=== PATIENT | female | born 1945 | race Asian ===

== ENCOUNTER 2020-08-28 15:04 | Inpatient (IN) | payer MEDICARE, MEDICAID, SELFPAY ==
--- NOTE | ~2020-08-28 | CT_ITS ---
EXAMINATION: CTA chest PE protocol DATE: 08/29/2020 14:37 INDICATION: Pleuritic right-sided chest pain. TECHNIQUE: Computed tomography angiography (CTA) of the chest was performed with 100 mL Omnipaque-350 intravenous contrast timed to evaluate the pulmonary arteries. Coronal maximum intensity projection 3D-reconstructions were created by the technologist. Automated exposure control and iterative reconst ruction technique were employed. The dose-length product was 363.76 mGy-cm. COMPARISON: Chest CT 08/14/2018 FINDINGS: Motion artifact is noted. There is diffuse smooth septal thickening in the lungs, consisten t with mild pulmonary edema. No pleural effusion. Cardiomegaly is noted. No pericardial effusion. Dario cified right hilar lymph nodes are consistent with old granulomatous disease. There is a left chest w all pacer with leads in the right atrium and right ventricle. There is no pulmonary embolus. The live r is small with nodular surface contour, consistent with cirrhosis. There are cysts in the liver geovanna uring up to 2.9 cm. There is a splenorenal shunt, consistent with portal venous hypertension. There i s an old healed fracture of right sixth rib. There are healing fractures of right 10th and 11th ribs. There are chronic burst fractures of T4, T7, T9, T12, L1, and L3. There is a burst fracture of L2 wi th 1/5 loss of height and retropulsion of bone 3 mm into central spinal canal. IMPRESSION: 1. No pulmonary embolus. Sensitivity is moderately decreased by motion artifact. 2. Mild pulmonary edema. 3. L2 burst fracture, likely subacute or chronic. 4. Healing right 10th and 11th rib fractures. 5. Cirrhosis of the liver with portal venous hypertension. Reviewed, dictated and finalized at location A. RVISOR CAB IMPRESSION: 1. No pulmonary embolus. Sensitivity is moderately decreased by motion artifact . 2. Mild pulmonary edema. 3. L2 burst fracture, likely subacute or chronic. 4. Healing right 10th and 11th rib fractures. 5. Cirrhosis of the liver with portal venous hypertension.
--- NOTE | ~2020-08-28 | CT_ITS ---
EXAMINATION: CT abdomen pelvis w con DATE: 08/28/2020 16:33 INDICATION: Abdominal pain. Vomiting. TECHNIQUE: Computed tomography (CT) of the abdomen and pelvis was performed with 98 mL Omnipaque 350 intravenous contrast. Automated exposure control and iterative reconstruction technique were employed . The dose-length product was 222.56 mGy-cm. COMPARISON: CT abdomen and pelvis 03/16/2018 FINDINGS: The visualized portions of the lung bases demonstrate smooth septal thickening, consistent with mild pulmonary edema. There is mild atelectasis bilaterally. There are trace pleural effusions. Cardiomegaly is noted. No pericardial effusion. There are pacer wires in right atrium and right ventr icle. The liver demonstrates surface nodularity, consistent with cirrhosis. There are multiple cysts in the liver measuring up to 3.1 cm. The gallbladder is normal. The spleen is normal in size. There i s a 10 mm cystic lesion in the body of the pancreas, likely benign. The adrenal glands and kidneys ar e normal. There is a splenorenal shunt. There are no dilated loops of bowel. Paraesophageal varices a re noted. There are no pathologically enlarged lymph nodes. There is trace ascites. There are old fra ctures of the right L1-L4 transverse processes with nonunion. There are chronic burst fractures of T9 , T12, L1, L3, and L4. There is a burst fracture of L2 with 1/5 loss of height and retropulsion of angie ne 3 mm into central spinal canal. IMPRESSION: 1. Cirrhosis of the liver with portal venous hypertension. 2. Mild pulmonary edema. 3. L2 burst fracture, likely subacute or chronic. Reviewed, dictated and finalized at location A. ESTATE SALES MANAGER
--- NOTE | ~2020-08-28 | XR_ITS ---
EXAMINATION: XR chest 1V portable DATE: 08/28/2020 15:57 INDICATION: Chest pain. TECHNIQUE: A single frontal view of the chest was obtained. COMPARISON: Chest 2 views 02/05/2019, chest CT 08/14/2018 FINDINGS: There is no pneumonia, pleural effusion, or pneumothorax. Cardiomegaly is noted. There is a left chest pacer/defibrillator with leads in right atrium and right ventricle. IMPRESSION: 1. Cardiomegaly. Reviewed, dictated and finalized at location A. IT SUPPORT COUNSELOR IMPRESSION: 1. Cardiomegaly.
[2020-08-28 15:15] VITALS: BP 140/62; PULSE 76; RESP 19; TEMP 36.6; O2SAT 94
--- NOTE | 2020-08-28 15:15 | ECG_ITS ---
Measurements Intervals [place] Rate: 74 P: 119 WI: 206 QRS: 28 QRSD: 90 T: 29 QT: 380 QTc: 423 Interpretive Statements ELECTRONIC ATRIAL PACEMAKER BASELINE WANDER- V5-V6 ATYPICAL ECG Electronically Signed On 08-28-2020 15:20:16 AUTOMATIC SILK SCREEN PRINTER by Francisco Javier Simmons D.O.
[2020-08-28 15:38] LABS: Basophils Percent Auto 0.6 % (0.2-1.2); Eosinophils Absolute Auto 0.2 K/mm3 (0-0.3); Eosinophils Percent Auto 7.1 % (0-4.4); Hematocrit 30.9 % (37.0-47.0); Hemoglobin 10.4 g/dL (12.0-15.0); Immature Granulocyte Absolute 0.01 K/mm3 (0.00-0.031); Immature Granulocyte Percent A 0.3 % (0-0.5); Immature Platelet Fraction Pct 1.9 % (0.9-11.2); Lymphocytes Absolute Auto 0.75 K/mm3 (0.9-3.2); Lymphocytes Percent Auto 22.3 % (18.3-44.2); Mean Corpuscular HGB Conc 33.7 g/dl (32-36); Mean Corpuscular Hemoglobin 34.1 pg (26-34); Mean Corpuscular Volume 101.3 fl (80-100); Mean Platelet Volume 11.1 fl (7.4-10.4); Monocytes Absolute Auto 0.5 K/mm3 (0.1-0.6); Monocytes Percent Auto 13.6 % (2.6-8.5); Neutrophils Absolute Auto 1.9 K/mm3 (1.3-6.7); Neutrophils Percent Auto 56.1 % (45.5-73.1); Platelet Count Result 54 k/mm3 (150-375); Red Blood Count 3.05 M/mm3 (4.2-5.4); Red Cell Distribution Width 14.8 % (11.5-14.5); White Blood Count 3.4 K/mm3 (4.5-10.0)
--- NOTE | 2020-08-28 15:45 | ED.GENADULT ---
HPI - General Adult General Chief complaint: Upper Respiratory Infection Stated complaint: BODYACHES, COUGH Time Seen by Provider: 08/28/20 15:20 Source: RN notes reviewed History of Present Illness HPI narrative: Patient presents to emergency department from home for multiple complaints. Patient speaks Mandarin and the patient's daughter is present to translate patient states she has not been feeling well for aggressively worse over the past 1 week. States she has been having low-grade fevers associated with a cough this been nonproductive states that over the past 4 days she has been having numerous episodes of nausea vomiting as well as diarrhea. Patient states she is having pain throughout her chest and into her abdomen described as a burning in nature she does have a history of cirrhosis and does take lactulose on a daily basis but is been intermittently throwing up her meds per the daughter no change in mental status Related Data Allergies Allergy/AdvReac Type Severity Reaction Status Date / Time No Known Allergies Allergy Verified 08/28/20 15:19 Review of Systems Review of Systems: Narrative: Gen.: Reports low-grade fevers Eyes: Denies eye pain or visual change ENT: Denies congestion Respiratory: Denies shortness of breath reports cough CV: Reports chest pain GI: See HPI Musculoskeletal: Denies back pain or muscle pain Neuro: Denies numbness, tingling, weakness or focal weakness Skin: Denies rash Except as documented, all other systems reviewed and negative [facility] Past Medical History Medical History (Updated 08/28/20 @ 18:41 by Chilo Olguin DO) Cirrhosis Hepatitis C Social History Social History (Updated 08/28/20 @ 18:40 by Chilo Olguin DO) Smoking status: Never smoker Exam Narrative: Exam Narrative: APPEARANCE: No acute distress, nontoxic, resting in bed EYES: EOMI HEENT: Normocephalic, atraumatic, OMM RESPIRATORY: No respiratory distress Clear to auscultation bilaterally with no rhonchi wheezing or rales. CARDIOVASCULAR: Regular rate and rhythm without murmurs rubs or gallops. ABDOMINAL: Soft, nondistended diffusely tender palpation no rebound or guarding MUSCULOSKELETAl: Moves all extremities. No clubbing, cyanosis or edema. NEURO: Awake and alert. Following commands, speech normal, no focal deficits SKIN:: Warm, dry. No rashes lesions or abrasions PSYCHIATRIC: Normal affect/mood, Course Course Emergency Course: Discussed with VONDA Samuel for Dr. Kemp presentation work-up agrees with plan for admission for gentle hydration monitor until patient is able to fully take p.o.'s well Covid swab at this time Discussed with patient and family results of workup and diagnosis. Discussed need for admission. Patient and family understand and agree to current treatment plan Vital Signs Vital signs: Vital Signs Temperature 97.9 F 08/28/20 15:15 Pulse Rate 76 08/28/20 15:15 Respiratory Rate 19 08/28/20 15:15 Blood Pressure 140/62 08/28/20 15:15 Pulse Oximetry 94 08/28/20 15:15 Temperature 97.9 F 08/28/20 15:15 Pulse Rate 80 08/28/20 18:37 Respiratory Rate 18 08/28/20 18:37 Blood Pressure 129/53 L 08/28/20 18:37 Pulse Oximetry 95 08/28/20 18:37 Medical Decision Making Vital Signs Vital Signs: Vital Signs Temperature 97.9 F 08/28/20 15:15 Pulse Rate 76 08/28/20 15:15 Respiratory Rate 19 08/28/20 15:15 Blood Pressure 140/62 08/28/20 15:15 Pulse Oximetry 94 08/28/20 15:15 Temperature 97.9 F 08/28/20 15:15 Pulse Rate 80 08/28/20 18:37 Respiratory Rate 18 08/28/20 18:37 Blood Pressure 129/53 L 08/28/20 18:37 Pulse Oximetry 95 08/28/20 18:37 Lab Data Result diagrams: 08/28/20 15:24 08/28/20 15:24 Labs: Lab Results 08/28/20 08/28/20 08/28/20 Range/Units 15:24 15:24 15:24 WBC 3.4 L (4.5-10.0) K/mm3 RBC 3.05 L (4.2-5.4) M/mm3 Hgb 10.4 L (12.0-15.0) g/dL Hct 30.9 L (
[2020-08-28 15:48] LABS: INR 1.3; Prothrombin Time 16.3 Seconds (11.1-14.7)
[2020-08-28 15:49] LABS: Partial Thromboplastin Time 40.6 SECONDS (22.3-36.8)
[2020-08-28 16:00] LABS: Anion Gap 3 mmol/L (8-16); Blood Urea Nitrogen 13 mg/dL (7-17); Calcium 8.4 mg/dL (8.4-10.2); Carbon Dioxide 32 mmol/L (22-30); Chloride 98 mmol/L (98-107); Estimated Glomerular Filt Rate > 60; Glucose 98 mg/dL (65-105); Sodium 133 mmol/L (137-145)
[2020-08-28 16:01] LABS: Alanine Aminotransferase 23 U/L (4-35); Albumin Level 3.1 g/dL (3.5-5.1); Alkaline Phosphatase 113 U/L (38-126); Aspartate Amino Transferase 66 U/L (14-36); Bilirubin,Total 2.3 mg/dL (0.2-1.3); Lipase 81 U/L (23-300)
[2020-08-28 16:10] LABS: Troponin I < 0.012 ng/mL (0.000-0.034)
[2020-08-28 16:55] VITALS: BP 129/57; PULSE 78; RESP 20; O2SAT 95
[2020-08-28 17:08] VITALS: O2SAT 96
[2020-08-28 17:38] LABS: Add Urine Microscopic? YES; Appearance Urine Clear (Clear); Bacteria Urine Trace /hpf; Bilirubin Urine Negative (Negative); Blood Urine 1+ (Negative); Color Urine Straw (Yellow); Glucose Urine UA Negative (Negative); Ketones Urine Negative (Negative); Leukocyte Esterase Ur Negative LEU/UL (Negative); Nitrate Urine Negative (Negative); Protein Urine Negative (Negative); RBC Urine 0-2 /hpf (0-2); Specific Grav Ur 1.015 (1.001-1.035); Squamous Epithelial Cell Urine Few /hpf (Few); Urobilinogen Urine Negative mg/dL (<2.0); WBC Urine 0-3 /hpf
[2020-08-28 17:54] LABS: Magnesium 1.6 mg/dL (1.6-2.3)
[2020-08-28 17:55] LABS: Lactic Acid Reflex 1.2 mmol/L (0.7-2.1)
[2020-08-28 18:35] LABS: Ammonia 26 umol/L (9-30)
[2020-08-28] MEDS: PANTOPRAZOLE SODIUM IV 40 MG VIAL IV PUSH (18:36)
[2020-08-28 18:37] VITALS: BP 129/53; PULSE 80; RESP 18; O2SAT 95
[2020-08-28 18:49] LABS: Troponin I 0.022 ng/mL (0.000-0.034)
--- NOTE | 2020-08-28 20:03 | ADMGEN ---
This patient, Stacie Mckenzie, was admitted to [facility] Surg Room 311-01. Patient/family oriented to hospital policies and general routines including ID bracelet, bed and alarms, visiting hours, pain management, procedures, bathroom and other care routines, personal items, smoking policy, room service/diet, and visiting hours. Information on how to activate the Rapid Response Team has been discussed. Patient/Family are encouraged to report perceived risks to care and to ask questions if they do not understand what they are told or what they should do.
[2020-08-28 20:10] VITALS: BP 144/52; PULSE 72; RESP 16; TEMP 36.6; O2SAT 93; BMI 19.9
[2020-08-28] MEDS: SODIUM CHLORIDE 0.9% IV 1,000 ML 100 ML IV CONT (20:12)
[2020-08-28 21:36] VITALS: BP 144/52; PULSE 72; RESP 16; TEMP 36.6; O2SAT 93; BMI 19.9
[2020-08-28 21:56] LABS: Troponin I 0.029 ng/mL (0.000-0.034)
[2020-08-29] VITALS: BP 116/41; PULSE 78; PULSE 85; RESP 18; TEMP 36.9; O2SAT 90
[2020-08-29 04:00] VITALS: BP 118/44; PULSE 73; PULSE 78; RESP 18; TEMP 36.9; O2SAT 90
[2020-08-29 06:10] LABS: Basophils Percent Auto 0.5 % (0.2-1.2); Eosinophils Absolute Auto 0.2 K/mm3 (0-0.3); Eosinophils Percent Auto 6.2 % (0-4.4); Hematocrit 29.4 % (37.0-47.0); Hemoglobin 9.9 g/dL (12.0-15.0); Immature Granulocyte Absolute 0.01 K/mm3 (0.00-0.031); Immature Granulocyte Percent A 0.3 % (0-0.5); Immature Platelet Fraction Pct 1.7 % (0.9-11.2); Lymphocytes Absolute Auto 0.85 K/mm3 (0.9-3.2); Mean Corpuscular HGB Conc 33.7 g/dl (32-36); Monocytes Absolute Auto 0.5 K/mm3 (0.1-0.6); Monocytes Percent Auto 13.3 % (2.6-8.5); Neutrophils Absolute Auto 2.1 K/mm3 (1.3-6.7); Neutrophils Percent Auto 56.7 % (45.5-73.1); Platelet Count Result 61 k/mm3 (150-375); Red Blood Count 2.91 M/mm3 (4.2-5.4); Red Cell Distribution Width 15.1 % (11.5-14.5); White Blood Count 3.7 K/mm3 (4.5-10.0)
[2020-08-29 06:20] LABS: Alanine Aminotransferase 17 U/L (4-35); Albumin Level 2.5 g/dL (3.5-5.1); Alkaline Phosphatase 75 U/L (38-126); Anion Gap 0 mmol/L (8-16); Aspartate Amino Transferase 44 U/L (14-36); Blood Urea Nitrogen 14 mg/dL (7-17); Calcium 8.1 mg/dL (8.4-10.2); Carbon Dioxide 30 mmol/L (22-30); Chloride 107 mmol/L (98-107); Estimated Glomerular Filt Rate > 60; Glucose 71 mg/dL (65-105); Sodium 137 mmol/L (137-145)
[2020-08-29] MEDS: SODIUM CHLORIDE 0.9% IV 1,000 ML 100 ML IV CONT (06:29)
[2020-08-29 08:00] VITALS: BP 137/51; PULSE 79; PULSE 80; RESP 20; TEMP 36.3; O2SAT 91
[2020-08-29] MEDS: FUROSEMIDE 20 MG TABLET PO (09:12)
[2020-08-29] MEDS: SPIRONOLACTONE 25 MG TABLET PO (09:13)
[2020-08-29] MEDS: POTASSIUM CHLORIDE 10 MEQ TABLET.ER PO (09:13)
[2020-08-29] MEDS: GABAPENTIN 100 MG CAPSULE PO ×3 (09:13→16:27)
[2020-08-29] MEDS: PANTOPRAZOLE SODIUM IV 40 MG VIAL IV PUSH ×2 (09:13→20:50)
--- NOTE | 2020-08-29 11:04 | PM.IMHP ---
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 Patient speaks Mandarin and daughter translates for patient as nursing reports her dialect is difficult to interpret using the designated science interpreter. Per the Daughter, patient started feeling ill sometime last week around 08/24. She states last week she developed subjective fevers and had nausea and vomiting. She also reported nonspecific chest pain, at first describing the pain from her chin to throughout her chest, however, currently, she points to her right side and reports chest pain with deep inspiration. She thought this started yesterday morning; no trauma to the site. She also reported vague abdominal pain and nausea and vomiting prior to arrival, however, this morning, she is now stating this has improved and was feeling hungry and asking for her meals. She also reports a chronic cough that waxes and wanes, that is usually productive, but as of recently her cough has been nonproductive. Daughter states patient lives with her other daughter and denies any sick contacts at home with similar symptoms or COVID contacts recently. She denies any black/tarry stools or blood in stools. Other than above complaints, she notes having lumber back pain as well. She has no other complaints at the moment. Denies current subjective f/c/s, palpitations, current n/v, current abd pain, changes in BMs, dysuria, hematuria, cloudy urine, calf pain/swelling. While in the ED, VS were stable, patient afebrile. Given respiratory symptoms and subjective fevers, patient swabbed for COVID. She was started on IV fluids given N/V and diarrhea. Ct abd/pelvis showed multiple chronic burst fractures with possible subacute vs chronic L2 burst fracture; cirrhosis of the liver with portal venous hypertension and mild pulmonary edema noted. Patient admitted given her n/v and possible dehydration Review of Systems Review of Systems: All systems reviewed & are unremarkable except as noted in HPI and below PMFSH Past Medical History Medical History Arthritis Asthma Cirrhosis Hepatitis C Hypertension Pacemaker TIA (transient ischemic attack) Surgical History Surgical History H/O cataract removal with insertion of prosthetic lens Family History Family History Other Unknown family medical history Social History Social History (Updated 08/29/20 @ 11:16 by Brayden Minor PA-C) Social History: Patient lives at home with her daughter. She is listed as a full code. Her PCP is Morgan Arauz NP. She sees liver specialist at [facility] Smoking status: Never smoker Alcohol intake: never Substance use: never Living arrangements: with family Occupation/Education: retired Gender identity (if verbalized by the patient): Female Spiritual care concerns: No Meds Home Medications and Allergies Home Medications Medication Instructions Recorded Confirmed Type furosemide 20 mg PO DAILY 08/28/20 08/28/20 History gabapentin 100 mg PO TID 08/28/20 08/28/20 History lactulose 30 ml PO BID PRN 08/28/20 08/28/20 History magnesium oxide 400 mg PO DAILY 08/28/20 08/28/20 History pantoprazole 40 mg PO DAILY 08/28/20 08/28/20 History potassium chloride 10 meq PO DAILY 08/28/20 08/28/20 History spironolactone 25 mg PO DAILY 08/28/20 08/28/20 History tadalafil (pulm. hypertension) 20 mg PO DAILY 08/28/20 08/28/20 History Allergies Allergy/AdvReac Type Severity Reaction Status Da
--- NOTE | 2020-08-29 11:15 | PC.NURSE ---
Patient speaks Mandarin. In past admissions, the [facility] has not worked for translation (unable to understand patient's dialect). Her daughter, Anshul, will assist with translation if needed. She can be contacted via telephone.
[2020-08-29 12:00] VITALS: BP 143/54; PULSE 70; PULSE 76; RESP 20; TEMP 36.2; O2SAT 95
[2020-08-29] MEDS: SUCRALFATE 1 GM TABLET PO ×3 (12:21→20:50)
[2020-08-29] MEDS: LACTULOSE 20 GM/30 ML UDC PO ×2 (12:21→16:27)
[2020-08-29] MEDS: traMADol HCL (*CRX) 25 MG TABLET PO ×2 (12:21→21:12)
[2020-08-29 16:00] VITALS: BP 156/67; PULSE 78; RESP 20; TEMP 36.6; O2SAT 94
[2020-08-29 18:13] LABS: SARS-CoV-2 RNA PCR Negative
[2020-08-29 22:00] VITALS: BP 142/68; PULSE 74; RESP 20; TEMP 36.8; O2SAT 94
[2020-08-30] MEDS: traMADol HCL (*CRX) 25 MG TABLET PO ×3 (02:28→20:55)
[2020-08-30 06:00] VITALS: BP 145/66; PULSE 70; RESP 20; TEMP 36.7; O2SAT 91
[2020-08-30] MEDS: SUCRALFATE 1 GM TABLET PO ×4 (06:22→20:56)
[2020-08-30 06:23] LABS: Basophils Percent Auto 0.5 % (0.2-1.2); Eosinophils Absolute Auto 0.3 K/mm3 (0-0.3); Eosinophils Percent Auto 8.3 % (0-4.4); Hematocrit 31.2 % (37.0-47.0); Hemoglobin 10.4 g/dL (12.0-15.0); Immature Granulocyte Absolute 0.01 K/mm3 (0.00-0.031); Immature Granulocyte Percent A 0.3 % (0-0.5); Lymphocytes Absolute Auto 0.86 K/mm3 (0.9-3.2); Lymphocytes Percent Auto 22.4 % (18.3-44.2); Mean Corpuscular HGB Conc 33.3 g/dl (32-36); Mean Platelet Volume 10.8 fl (7.4-10.4); Monocytes Absolute Auto 0.5 K/mm3 (0.1-0.6); Monocytes Percent Auto 12.5 % (2.6-8.5); Neutrophils Absolute Auto 2.2 K/mm3 (1.3-6.7); Platelet Count Result 60 k/mm3 (150-375); Red Blood Count 3.06 M/mm3 (4.2-5.4); Red Cell Distribution Width 15.4 % (11.5-14.5); White Blood Count 3.8 K/mm3 (4.5-10.0)
[2020-08-30 06:46] LABS: Alanine Aminotransferase 18 U/L (4-35); Albumin Level 2.6 g/dL (3.5-5.1); Alkaline Phosphatase 77 U/L (38-126); Anion Gap 1 mmol/L (8-16); Aspartate Amino Transferase 45 U/L (14-36); Bilirubin,Total 2.8 mg/dL (0.2-1.3); Blood Urea Nitrogen 14 mg/dL (7-17); Carbon Dioxide 28 mmol/L (22-30); Chloride 104 mmol/L (98-107); Estimated Glomerular Filt Rate > 60; Glucose 125 mg/dL (65-105); Magnesium 1.5 mg/dL (1.6-2.3); Potassium 3.7 mmol/L (3.4-5.0); Sodium 133 mmol/L (137-145)
[2020-08-30 07:22] LABS: Vitamin D 25 Hydroxy 15.2 ng/mL
[2020-08-30 08:19] LABS: Parathyroid Intact 27.4 pg/mL (7.5-53.5)
[2020-08-30 08:23] LABS: Folic Acid 10.9 ng/mL (2.76->20)
[2020-08-30 08:27] VITALS: BP 138/54; PULSE 72; RESP 18; TEMP 36.6; O2SAT 91
[2020-08-30] MEDS: GABAPENTIN 100 MG CAPSULE PO ×3 (08:31→16:13)
[2020-08-30] MEDS: POTASSIUM CHLORIDE 10 MEQ TABLET.ER PO (08:31)
[2020-08-30] MEDS: SPIRONOLACTONE 25 MG TABLET PO (08:31)
[2020-08-30] MEDS: FUROSEMIDE 20 MG TABLET PO (08:31)
[2020-08-30] MEDS: PANTOPRAZOLE SODIUM IV 40 MG VIAL IV PUSH (08:32)
[2020-08-30] MEDS: LACTULOSE 20 GM/30 ML UDC PO ×2 (08:32→16:12)
--- NOTE | 2020-08-30 10:49 | PC.NURSE ---
Spoke with Anshul (daughter) and gave a general update on her mother this morning. All questions answered stated by Anshul.
[2020-08-30 11:36] LABS: Total Triiodothyronine (T3) 0.73 NG/ML (0.97-1.69)
[2020-08-30] MEDS: MAGNESIUM SULF 1 GM/D5W 100 ML 1 GM/100 ML BAG IVPB (11:37)
--- NOTE | 2020-08-30 13:34 | PM.IMPN ---
Progress Note: A&P Assessment and Plan (1) Right rib fracture: Code(s): S22.31XA - Fracture of one rib, right side, initial encounter for closed fracture Status: Acute Assessment and Plan: CTA chest notes healing right 10th and 11th rib fractures and multiple chronic burst fractures of thoracic and lumbar spine with L2 burst fracture subacute vs chronic in nature. Daughter states she thinks she fell roughly 6 months ago, but does not know if there are more recent injuries; patient denied this on admission. Discussed with Radiologist who does not feel there are any lytic lesions or evidence of pathological fracture; appears osteoporotic in nature. Vit D level 15.2, calcium mildly low, PTH intact WNL, TSH WNL, protein electrophoresis pending. Discussed with PT/OT who recommended Ortho consult for possible eval for brace and activity recommendations PT/OT evals Orthopedic consultation; appreciate input Monitor Pain control as needed with Tramadol (2) Burst fracture of lumbar vertebra: Code(s): S32.001A - Stable burst fracture of unspecified lumbar vertebra, initial encounter for closed fracture Status: Inactive Assessment and Plan: Multiple fractures. Please see above a/p (3) Burst fracture of thoracic vertebra: Code(s): S22.001A - Stable burst fracture of unspecified thoracic vertebra, initial encounter for closed fracture Status: Acute Assessment and Plan: Multiple fractures. Please see above a/p (4) Vitamin D deficiency: Code(s): E55.9 - Vitamin D deficiency, unspecified Status: Acute Assessment and Plan: Vit D 25 hydroxy level 15.2 ng/mL, calcium mildly low, PTH intact WNL Will replace with 1000 units Vit d daily F/u with PCP (5) Nausea & vomiting: Code(s): R11.2 - Nausea with vomiting, unspecified Status: Resolved Assessment and Plan: Appears to have resolved. Unclear etiology; possible viral gastritis?. Willing to advance diet further today Continue carafate ACHS Switch to home PO pantoprazole Advance diet as tolerated to Low sodium diet Monitor overnight (6) Abdominal pain: Code(s): R10.9 - Unspecified abdominal pain Status: Resolved Assessment and Plan: This appears to have resolved. Again, unclear etiology as patient is a poor historian. Possibly gastritis? Please see above a/p advance diet as tolerated (7) Chest pain: Code(s): R07.9 - Chest pain, unspecified Status: Acute Assessment and Plan: Patient complaining of right pleuritic pain, however chest CTA reveals MSK injury; likely etiology behind pain. CTA chest 08/29 showed no evidence of PE; Healing right 10th and 11th rib fractures. Patient does not recall recent fall injury. Troponin levels negative x 3. Tramadol for pain as noted above Monitor (8) Pancytopenia: Code(s): D61.818 - Other pancytopenia Status: Acute Assessment and Plan: Appears chronic and stable upon review of labs. Likely related to cirrhosis Monitor for now Transfuse prn (9) Cirrhosis: Code(s): K74.60 - Unspecified cirrhosis of liver Status: Acute Assessment and Plan: With known esophageal varices. No evidence of upper GI bleed. Sees GI specialist at [facility] Continue home lactulose BID scheduled Will resume home PO pantoprazole Will continue carafate; likely continue at discharge (10) Asthma: Code(s): J45.909 - Unspecified asthma, uncomplicated Status: Inactive Assessment and Plan: Does not appear to be on any medications. Wheezing appears to have resolved Gautam
--- NOTE | 2020-08-30 13:48 | PCOTNOTE ---
Awaiting orthopedic evaluation/clarification due to multiple vertebral burst fractures. Will complete OT evaluation when appropriate.
[2020-08-30 14:00] VITALS: BP 104/49; PULSE 74; RESP 18; TEMP 36.4; O2SAT 97
[2020-08-30] MEDS: CHOLECALCIFEROL 1,000 UNITS TABLET 1000 UNITS PO (16:13)
[2020-08-30 22:00] VITALS: BP 139/53; PULSE 72; RESP 20; TEMP 37.4; O2SAT 95
[2020-08-31] VITALS: TEMP 36.9
[2020-08-31 06:00] VITALS: BP 127/50; PULSE 74; RESP 16; TEMP 36.8; O2SAT 92
[2020-08-31 06:28] LABS: Basophils Percent Auto 0.4 % (0.2-1.2); Eosinophils Absolute Auto 0.4 K/mm3 (0-0.3); Eosinophils Percent Auto 8.9 % (0-4.4); Hematocrit 31.2 % (37.0-47.0); Hemoglobin 10.5 g/dL (12.0-15.0); Immature Granulocyte Absolute 0.01 K/mm3 (0.00-0.031); Immature Granulocyte Percent A 0.2 % (0-0.5); Lymphocytes Absolute Auto 0.92 K/mm3 (0.9-3.2); Mean Corpuscular HGB Conc 33.7 g/dl (32-36); Mean Corpuscular Hemoglobin 33.5 pg (26-34); Mean Corpuscular Volume 99.7 fl (80-100); Mean Platelet Volume 9.6 fl (7.4-10.4); Monocytes Absolute Auto 0.5 K/mm3 (0.1-0.6); Monocytes Percent Auto 11.8 % (2.6-8.5); Neutrophils Absolute Auto 2.7 K/mm3 (1.3-6.7); Neutrophils Percent Auto 58.7 % (45.5-73.1); Platelet Count Result 64 k/mm3 (150-375); Red Blood Count 3.13 M/mm3 (4.2-5.4); Red Cell Distribution Width 15.1 % (11.5-14.5); White Blood Count 4.6 K/mm3 (4.5-10.0)
[2020-08-31 06:42] LABS: Alanine Aminotransferase 16 U/L (4-35); Albumin Level 2.4 g/dL (3.5-5.1); Alkaline Phosphatase 74 U/L (38-126); Anion Gap -4 mmol/L (8-16); Aspartate Amino Transferase 38 U/L (14-36); Bilirubin,Total 3.3 mg/dL (0.2-1.3); Blood Urea Nitrogen 13 mg/dL (7-17); Calcium 7.9 mg/dL (8.4-10.2); Carbon Dioxide 34 mmol/L (22-30); Chloride 102 mmol/L (98-107); Estimated Glomerular Filt Rate > 60; Glucose 84 mg/dL (65-105); Magnesium 1.4 mg/dL (1.6-2.3); Potassium 3.7 mmol/L (3.4-5.0); Sodium 132 mmol/L (137-145)
[2020-08-31] MEDS: SUCRALFATE 1 GM TABLET PO ×4 (07:11→20:28)
[2020-08-31 09:01] VITALS: BP 134/99; PULSE 81; RESP 18; TEMP 36.6; O2SAT 91
[2020-08-31] MEDS: MAGNESIUM SULF 2 GM/WATER 50ML 2 GM/50 ML BAG IVPB (09:04)
[2020-08-31] MEDS: PANTOPRAZOLE 40 MG TABLET PO (09:04)
[2020-08-31] MEDS: CHOLECALCIFEROL 1,000 UNITS TABLET 1000 UNITS PO (09:05)
[2020-08-31] MEDS: POTASSIUM CHLORIDE 10 MEQ TABLET.ER PO (09:05)
[2020-08-31] MEDS: SPIRONOLACTONE 25 MG TABLET PO (09:05)
[2020-08-31] MEDS: FUROSEMIDE 20 MG TABLET PO (09:05)
[2020-08-31] MEDS: GABAPENTIN 100 MG CAPSULE PO ×3 (09:06→17:10)
[2020-08-31] MEDS: traMADol HCL (*CRX) 25 MG TABLET PO ×2 (09:06→11:29)
[2020-08-31] MEDS: LACTULOSE 20 GM/30 ML UDC PO ×2 (09:06→17:09)
[2020-08-31 10:18] VITALS: BMI 11.0
[2020-08-31 10:20] VITALS: BMI 11.0
[2020-08-31 14:00] VITALS: BP 121/43; PULSE 69; RESP 16; TEMP 36.8; O2SAT 92
--- NOTE | 2020-08-31 14:33 | PM.IMPN ---
Progress Note: A&P Assessment and Plan (1) Right rib fracture: Code(s): S22.31XA - Fracture of one rib, right side, initial encounter for closed fracture Status: Acute Assessment and Plan: CTA chest notes healing right 10th and 11th rib fractures and multiple chronic burst fractures of thoracic and lumbar spine with L2 burst fracture subacute vs chronic in nature. Daughter states she thinks she fell roughly 6 months ago, but does not know if there are more recent injuries; patient denied this on admission. Discussed with Radiologist who does not feel there are any lytic lesions or evidence of pathological fracture; appears osteoporotic in nature. Vit D level 15.2, calcium mildly low, PTH intact WNL, TSH WNL, protein electrophoresis pending. Discussed case with Dr. Jimenez who recommended MR of lumbar and thoracic spine for further eval of burst fractures; if chronic appearing, then recommended no brace/corset to limit deconditioning of paraspinous muscles; if acute, then recommended throacolumbar corset for a short period. Also recommended spinal specialist outpatient referral PT/OT Monitor Pain control as needed with Tramadol; will increase to 50 mg Q6h prn Recommended outpatient follow up with PCP and possible pain specialist, as well as insurance marketing specialist Will do MR thoracic/lumbar spine wo contrast (2) Burst fracture of lumbar vertebra: Code(s): S32.001A - Stable burst fracture of unspecified lumbar vertebra, initial encounter for closed fracture Status: Inactive Assessment and Plan: Multiple fractures. Please see above a/p (3) Burst fracture of thoracic vertebra: Code(s): S22.001A - Stable burst fracture of unspecified thoracic vertebra, initial encounter for closed fracture Status: Acute Assessment and Plan: Multiple fractures. Please see above a/p (4) Vitamin D deficiency: Code(s): E55.9 - Vitamin D deficiency, unspecified Status: Acute Assessment and Plan: Vit D 25 hydroxy level 15.2 ng/mL, calcium mildly low, PTH intact WNL Will replace with 1000 units Vit d daily F/u with PCP (5) Nausea & vomiting: Code(s): R11.2 - Nausea with vomiting, unspecified Status: Resolved Assessment and Plan: Appears to have resolved. Unclear etiology; possible viral gastritis?. Tolerating PO Continue carafate ACHS Continue home PO pantoprazole Monitor overnight (6) Abdominal pain: Code(s): R10.9 - Unspecified abdominal pain Status: Resolved Assessment and Plan: This appears to have resolved. Again, unclear etiology as patient is a poor historian. Possibly gastritis? Please see above a/p Continue current diet (7) Chest pain: Code(s): R07.9 - Chest pain, unspecified Status: Acute Assessment and Plan: Patient complaining of right pleuritic pain, however chest CTA reveals MSK injury; likely etiology behind pain. CTA chest 08/29 showed no evidence of PE; Healing right 10th and 11th rib fractures. Patient does not recall recent fall injury. Troponin levels negative x 3. Tramadol for pain as noted above Monitor (8) Pancytopenia: Code(s): D61.818 - Other pancytopenia Status: Acute Assessment and Plan: Appears chronic and stable upon review of labs. Likely related to cirrhosis Monitor for now Transfuse prn (9) Cirrhosis: Code(s): K74.60 - Unspecified cirrhosis of liver Status: Acute Assessment and Plan: With known esophageal varices. No evidence of upper GI bleed. Sees GI specialist at [facility] Continue home lactulose BID scheduled Will continue home PO pantoprazole Will con
[2020-08-31 22:00] VITALS: BP 127/48; PULSE 67; RESP 20; TEMP 37; O2SAT 93
[2020-09-01] MEDS: traMADol HCL (*CRX) 50 MG TABLET PO (02:33)
[2020-09-01] MEDS: SUCRALFATE 1 GM TABLET PO ×4 (05:34→20:21)
[2020-09-01 06:00] VITALS: BP 129/46; PULSE 83; RESP 20; TEMP 36.7; O2SAT 97
[2020-09-01 06:21] LABS: Basophils Percent Auto 0.4 % (0.2-1.2); Eosinophils Absolute Auto 0.6 K/mm3 (0-0.3); Eosinophils Percent Auto 11.1 % (0-4.4); Hematocrit 30.8 % (37.0-47.0); Hemoglobin 10.4 g/dL (12.0-15.0); Immature Granulocyte Absolute 0.01 K/mm3 (0.00-0.031); Immature Granulocyte Percent A 0.2 % (0-0.5); Lymphocytes Absolute Auto 1.05 K/mm3 (0.9-3.2); Lymphocytes Percent Auto 18.8 % (18.3-44.2); Mean Corpuscular HGB Conc 33.8 g/dl (32-36); Mean Corpuscular Hemoglobin 33.2 pg (26-34); Mean Corpuscular Volume 98.4 fl (80-100); Mean Platelet Volume 8.7 fl (7.4-10.4); Monocytes Absolute Auto 0.7 K/mm3 (0.1-0.6); Monocytes Percent Auto 13.1 % (2.6-8.5); Neutrophils Absolute Auto 3.2 K/mm3 (1.3-6.7); Neutrophils Percent Auto 56.4 % (45.5-73.1); Platelet Count Result 55 k/mm3 (150-375); Red Blood Count 3.13 M/mm3 (4.2-5.4); Red Cell Distribution Width 14.9 % (11.5-14.5); White Blood Count 5.6 K/mm3 (4.5-10.0)
[2020-09-01 06:41] LABS: Alanine Aminotransferase 15 U/L (4-35); Albumin Level 2.4 g/dL (3.5-5.1); Alkaline Phosphatase 66 U/L (38-126); Anion Gap -4 mmol/L (8-16); Aspartate Amino Transferase 37 U/L (14-36); Bilirubin,Total 3.1 mg/dL (0.2-1.3); Blood Urea Nitrogen 17 mg/dL (7-17); Calcium 7.5 mg/dL (8.4-10.2); Carbon Dioxide 32 mmol/L (22-30); Chloride 99 mmol/L (98-107); Estimated Glomerular Filt Rate > 60; Glucose 182 mg/dL (65-105); Magnesium 1.6 mg/dL (1.6-2.3); Potassium 3.7 mmol/L (3.4-5.0); Sodium 127 mmol/L (137-145)
[2020-09-01 08:00] VITALS: PULSE 83; RESP 20; O2SAT 97
[2020-09-01] MEDS: FUROSEMIDE 20 MG TABLET PO (10:27)
[2020-09-01] MEDS: PANTOPRAZOLE 40 MG TABLET PO (10:27)
[2020-09-01] MEDS: POTASSIUM CHLORIDE 10 MEQ TABLET.ER PO (10:28)
[2020-09-01] MEDS: LACTULOSE 20 GM/30 ML UDC PO ×2 (10:28→17:16)
[2020-09-01] MEDS: CHOLECALCIFEROL 1,000 UNITS TABLET 1000 UNITS PO (10:28)
[2020-09-01] MEDS: SPIRONOLACTONE 25 MG TABLET PO (10:28)
[2020-09-01] MEDS: GABAPENTIN 100 MG CAPSULE PO ×3 (10:28→17:16)
[2020-09-01 14:00] VITALS: BP 119/50; PULSE 67; RESP 20; TEMP 36.6; O2SAT 94
--- NOTE | 2020-09-01 14:27 | PM.IMPN ---
Progress Note: A&P Assessment and Plan (1) Right rib fracture: Code(s): S22.31XA - Fracture of one rib, right side, initial encounter for closed fracture Status: Acute Assessment and Plan: CTA chest notes healing right 10th and 11th rib fractures and multiple chronic burst fractures of thoracic and lumbar spine with L2 burst fracture subacute vs chronic in nature. Daughter states she thinks she fell roughly 6 months ago, but does not know if there are more recent injuries; patient denied this on admission. Discussed with Radiologist who does not feel there are any lytic lesions or evidence of pathological fracture; appears osteoporotic in nature. Vit D level 15.2, calcium mildly low, PTH intact WNL, TSH WNL, protein electrophoresis pending. Discussed case with Dr. Jimenez who recommended MR of lumbar and thoracic spine for further eval of burst fractures however patient unable to get MRI at this facility due to her pacemaker. Discussed results of ct imaging again and it was felt that L2 burst fracture was more chornic appearing. Given the chronic appearing fractures, Dr. Jimenez recommended no brace or corset. He also recommended spinal specialist outpatient referral. Pain is still not controlled as she is unable to get out of bed due to pain. Choices of pain medication are limited due to her cirrhosis Will initiate oxycodone IR 2.5mg Q12 hr due to her cirrhosis; tramadol 50 mg Q6hr for breakthrough pain Should her pain improves overnight and she is able to move more tomorrow, will plan on discharge PT/OT Monitor overnight Recommended outpatient follow up with PCP and possible pain specialist, as well as quality control specialist (2) Burst fracture of lumbar vertebra: Code(s): S32.001A - Stable burst fracture of unspecified lumbar vertebra, initial encounter for closed fracture Status: Inactive Assessment and Plan: Multiple fractures. Please see above a/p (3) Burst fracture of thoracic vertebra: Code(s): S22.001A - Stable burst fracture of unspecified thoracic vertebra, initial encounter for closed fracture Status: Acute Assessment and Plan: Multiple fractures. Please see above a/p (4) Vitamin D deficiency: Code(s): E55.9 - Vitamin D deficiency, unspecified Status: Acute Assessment and Plan: Vit D 25 hydroxy level 15.2 ng/mL, calcium mildly low, PTH intact WNL Will replace with 1000 units Vit d daily F/u with PCP (5) Nausea & vomiting: Code(s): R11.2 - Nausea with vomiting, unspecified Status: Resolved Assessment and Plan: Appears to have resolved. Unclear etiology; possible viral gastritis? Tolerating PO Continue carafate ACHS Continue home PO pantoprazole Monitor overnight (6) Abdominal pain: Code(s): R10.9 - Unspecified abdominal pain Status: Resolved Assessment and Plan: This appears to have resolved. Again, unclear etiology as patient is a poor historian. Possibly gastritis? Please see above a/p Continue current diet (7) Chest pain: Code(s): R07.9 - Chest pain, unspecified Status: Acute Assessment and Plan: Patient complained of right pleuritic pain, however chest CTA reveals MSK injury; likely etiology behind pain. CTA chest 08/29 showed no evidence of PE; Healing right 10th and 11th rib fractures. Radiologist feels these are not lytic/pathologic lesions. Patient does not recall recent fall injury. Troponin levels negative x 3. Tramadol and oxycodone for pain as noted above Monitor (8) Pancytopenia: Code(s): D61.818 - Other pancytopenia Status: Acute Assessment and Plan: Appears chronic and stable/improved upon revie
[2020-09-01] MEDS: oxyCODONE HCL (*CRX) 2.5 MG TAB IR PO (20:22)
[2020-09-01 22:00] VITALS: BP 117/43; PULSE 72; RESP 20; TEMP 36.6; O2SAT 92
[2020-09-02 06:00] VITALS: BP 129/45; PULSE 75; RESP 22; TEMP 36.7; O2SAT 90
[2020-09-02] MEDS: SUCRALFATE 1 GM TABLET PO ×2 (06:00→12:39)
[2020-09-02 06:13] LABS: Hematocrit 32.3 % (37.0-47.0); Hemoglobin 11.1 g/dL (12.0-15.0); Mean Corpuscular HGB Conc 34.4 g/dl (32-36); Mean Corpuscular Hemoglobin 33.9 pg (26-34); Mean Corpuscular Volume 98.8 fl (80-100); Mean Platelet Volume 10.6 fl (7.4-10.4); Platelet Count Result 81 k/mm3 (150-375); Red Blood Count 3.27 M/mm3 (4.2-5.4); Red Cell Distribution Width 15.2 % (11.5-14.5); White Blood Count 5.6 K/mm3 (4.5-10.0)
[2020-09-02 06:30] LABS: Anion Gap -3 mmol/L (8-16); Blood Urea Nitrogen 18 mg/dL (7-17); Calcium 7.8 mg/dL (8.4-10.2); Carbon Dioxide 33 mmol/L (22-30); Chloride 97 mmol/L (98-107); Estimated Glomerular Filt Rate > 60; Glucose 112 mg/dL (65-105); Magnesium 1.5 mg/dL (1.6-2.3); Potassium 4.1 mmol/L (3.4-5.0); Sodium 127 mmol/L (137-145)
[2020-09-02 08:00] VITALS: PULSE 75; RESP 22; O2SAT 90
[2020-09-02] MEDS: MAGNESIUM SULF 1 GM/D5W 100 ML 1 GM/100 ML BAG IVPB (08:48)
[2020-09-02] MEDS: oxyCODONE HCL (*CRX) 2.5 MG TAB IR PO (08:49)
[2020-09-02] MEDS: POTASSIUM CHLORIDE 10 MEQ TABLET.ER PO (08:49)
[2020-09-02] MEDS: LACTULOSE 20 GM/30 ML UDC PO (08:49)
[2020-09-02] MEDS: CHOLECALCIFEROL 1,000 UNITS TABLET 1000 UNITS PO (08:49)
[2020-09-02] MEDS: SPIRONOLACTONE 25 MG TABLET PO (08:50)
[2020-09-02] MEDS: PANTOPRAZOLE 40 MG TABLET PO (08:50)
[2020-09-02] MEDS: GABAPENTIN 100 MG CAPSULE PO ×2 (08:50→12:38)
[2020-09-02] MEDS: FUROSEMIDE 20 MG TABLET PO (08:50)
--- NOTE | 2020-09-02 11:11 | PCOTNOTE ---
Practitioner attempted to have patient complete therapy session this date, but patient refused. Will attempt therapy at a later date.
[2020-09-02] MEDS: traMADol HCL (*CRX) 50 MG TABLET PO (12:41)
[2020-09-02 14:00] VITALS: BP 116/56; PULSE 77; RESP 18; TEMP 36.3; O2SAT 93
--- NOTE | 2020-09-02 14:14 | PM.DS ---
DS: Admitting Diagnosis Admitting Diagnosis Admitting Diagnosis: abdominal pain, chest pain, nausea vomiting DS: Discharge Diagnosis Discharge Diagnosis (1) Right rib fracture: Code(s): S22.31XA - Fracture of one rib, right side, initial encounter for closed fracture Status: Acute Assessment and Plan: CTA chest notes healing right 10th and 11th rib fractures and multiple chronic burst fractures of thoracic and lumbar spine with L2 burst fracture subacute vs chronic in nature. Daughter states she thinks she fell roughly 6 months ago, but does not know if there are more recent injuries; patient denied this on admission. Discussed with Radiologist who does not feel there are any lytic lesions or evidence of pathological fracture; appears osteoporotic in nature. Vit D level 15.2, calcium mildly low, PTH intact WNL, TSH WNL, protein electrophoresis pending. Discussed case with Dr. Jimenez who recommended MR of lumbar and thoracic spine for further eval of burst fractures however patient unable to get MRI at this facility due to her pacemaker. Discussed results of ct imaging again and it was felt that L2 burst fracture was more chronic appearing. Given the chronic appearing fractures, Dr. Jimenez recommended no brace or corset. He also recommended on site services specialist outpatient referral. Pain still present but seems better controlled on oxycodone as she was able to get up into chair today. Choices of pain medication are limited due to her cirrhosis Will give short coures of oxycodone IR 2.5mg Q8h prn for severe pain due to her cirrhosis She will need f/u with her PCP Recommended on site services specialist and pain specialist PT/OT outpatient. Patient refused rehab and HH therapy (2) Burst fracture of lumbar vertebra: Code(s): S32.001A - Stable burst fracture of unspecified lumbar vertebra, initial encounter for closed fracture Status: Acute Assessment and Plan: Multiple fractures. Please see above a/p (3) Burst fracture of thoracic vertebra: Code(s): S22.001A - Stable burst fracture of unspecified thoracic vertebra, initial encounter for closed fracture Status: Acute Assessment and Plan: Multiple fractures. Please see above a/p (4) Vitamin D deficiency: Code(s): E55.9 - Vitamin D deficiency, unspecified Status: Acute Assessment and Plan: Vit D 25 hydroxy level 15.2 ng/mL, calcium mildly low, PTH intact WNL Will continue with 1000 units Vit d daily at discharge F/u with PCP (5) Nausea & vomiting: Code(s): R11.2 - Nausea with vomiting, unspecified Status: Resolved Assessment and Plan: Appears to have resolved. Unclear etiology; possible viral gastritis? Tolerating PO Continue carafate ACHS at discahrge Continue home PO pantoprazole (6) Abdominal pain: Code(s): R10.9 - Unspecified abdominal pain Status: Resolved Assessment and Plan: This appears to have resolved. Again, unclear etiology as patient is a poor historian. Possibly gastritis? Please see above a/p Continue current diet (7) Chest pain: Code(s): R07.9 - Chest pain, unspecified Status: Acute Assessment and Plan: Patient complained of right pleuritic pain, however chest CTA reveals MSK injury; likely etiology behind pain. CTA chest 08/29 showed no evidence of PE; Healing right 10th and 11th rib fractures. Radiologist feels these are not lytic/pathologic lesions. Patient does not recall recent fall injury. Troponin levels negative x 3. oxycodone for pain as noted above (8) Pancytopenia: Code(s): D61.818 - Other pancytopenia Status: Acute Assessment and Plan: Appears chronic and st
[2020-09-03 05:44] LABS: Albumin 2.9 g/dL (3.8-4.8); Alpha 1 Globulin 0.2 g/dL (0.2-0.3); Alpha 2 Globulin 0.5 g/dL (0.5-0.9); Beta 1 Globulin 0.2 g/dL (0.4-0.6); Gamma Globulin 1.2 g/dL (0.8-1.7); Protein, Total 5.1 g/dL (6.1-8.1)
== END 2020-09-02 17:05 | disposition home or self-care (01) | DRG 392 ==
LOC: ANHED 18:41 → ANH3MEDSUR 19:23
PROVIDERS: Physician Assistant; Admitting Provider Family Medicine; Emergency Provider Emergency Medicine; PCP Nurse Practitioner Family; Visit Provider Internal Medicine
DX: R11.2 Nausea with vomiting, unspecified (principal); S22.31XA Fracture of one rib, right side, initial encounter for closed fracture; S32.021A Stable burst fracture of second lumbar vertebra, initial encounter for closed fracture; S22.001A Stable burst fracture of unspecified thoracic vertebra, initial encounter for closed fracture; D61.818 Other pancytopenia; I85.10 Secondary esophageal varices without bleeding; Z20.822 Contact with and (suspected) exposure to COVID-19; Z91.81 History of falling; J45.909 Unspecified asthma, uncomplicated; E55.9 Vitamin D deficiency, unspecified; I10 Essential (primary) hypertension; K74.60 Unspecified cirrhosis of liver; B19.20 Unspecified viral hepatitis C without hepatic coma; M19.90 Unspecified osteoarthritis, unspecified site; Z28.21 Immunization not carried out because of patient refusal; Z86.73 Personal history of transient ischemic attack (TIA), and cerebral infarction without residual deficits; Z95.0 Presence of cardiac pacemaker; Z98.49 Cataract extraction status, unspecified eye; Z96.1 Presence of intraocular lens
CPT/HCPCS: 36415; 71045; 71275; 74177; 80048; 80053; 80076; 81001; 82140; 82306; 82607; 82746; 83605; 83690; 83735; 83970; 84155; 84165; 84439; 84443; 84480; 84484; 85025; 85027; 85055; 85610; 85730; 87040; 93005; 96361; 96374; 96376; 97161; 97165; 99285; A9270; C9113; C9803; G0378; J3475; J7030; Q9967; U0003; U0005

== ENCOUNTER 2021-01-03 11:36 | Observation (INO) | payer MEDICARE, MEDICAID, SELFPAY ==
[2021-01-03] VITALS (28 sets, daily range): BP systolic 103–127; BP diastolic 37–78; PULSE 72–81; RESP 14–19; TEMP 36.3–37.1; O2SAT 94–100; BMI 26.9
--- NOTE | ~2021-01-03 | CT_ITS ---
EXAMINATION: CT chest abdomen pelvis w con EXAM DATE: 01/03/2021 13:44 INDICATION: Bruising to left-sided chest and back for 2 days. Confusion. History of burst fracture. TECHNIQUE: Spiral CT of the chest, abdomen and pelvis was performed following intravenous injection o f 100 mL Omnipaque 350. Axial, coronal and sagittal images chest, abdomen and pelvis were reviewed. Coronal maximum intensity pixel images of chest reviewed. The dose-length product (DLP) for this ex amination was 289.11 mGy-cm. The exposure was tailored according to patient size (auto mA exposure c ontrol), and iterative reconstruction (ASIR) was used as additional dose reduction technique. Compare d to prior chest CT 08/29/2020, abdomen pelvis CT 08/28/2020 FINDINGS: BONES: Diffuse osteopenia. Multiple burst fractures of varying ages, but no more than several millime ters of retropulsion at any given level.. T4: Moderate chronic burst fracture. T6: Mild chronic anterior wedging. T7: Moderate chronic burst fracture. T8: Progression of now moderate burst fracture, could have acute component. T9: Moderate to severe chronic burst fracture. T12 and L1: Moderate to severe chronic burst fractures. L2: Mild to moderate subacute to chronic burst fracture. L3: Severe chronic burst fracture. L4: Moderate to severe chronic burst fracture. L5: Interval development acute or acute on subacute moderate burst fracture. Subacute right 8th rib fracture. Chronic right 6th rib fracture. Acute appearing left 7th rib fracture posteriorly. Subacute appearing left 9th rib fracture posteriorly. No evidence of sacral insufficiency fracture. CHEST: There is mild perihilar predominant groundglass airspace disease, along with cardiomegaly. Co uld be mild pulmonary edema. Scattered small regions of tree-in-bud pattern airspace disease most con sistent with small amount of endobronchial infectious process. The main, central pulmonary arteries a re dilated which can indicate elevated pulmonary arterial pressure, pulmonary arterial hypertension. There are no pleural or pericardial effusions. Tracheobronchial tree is patent. Left-sided pacema ker/AICD device. There is no mediastinal, hilar or axillary lymphadenopathy. There is no pneumothor ax. No evidence of coronary arterial calcification. ABDOMEN PELVIS: Atrophic cirrhotic liver with chronic portal vein occlusion. The portal/splenic venou s confluence dilated at 1.8 cm, portal hypertension. Severely dilated splenic vein and splenorenal po rtosystemic shunting. Gallbladder is unremarkable. No biliary obstruction. Portal and splenic vein s are patent. Kidneys enhance symmetrically. There is no hydronephrosis. Scattered low-density live r lesions consistent with cysts. The uterus is unremarkable. The bladder is unremarkable. There i s no retroperitoneal or pelvic lymphadenopathy. Tortuous abdominal aorta. No dissection or aneurysm . Probable identification of a normal appendix. No pericecal inflammation. The stomach and small patricia l are unremarkable. There is expected amount of colonic stool. No free intraperitoneal gas. IMPRESSION: 1. Cardiomegaly. Possible mild CHF exacerbation. 2. Scattered small regions of tree-in-bud airspace disease, nonspecific bronchiolitis. 3. Dilated pulmonary arteries. 4. Numerous thoracolumbar burst fractures of varying ages with progression or development of fractur es at T8 and L5 compared to August. 5. Acute left 7th rib fracture posteriorly. 6. Cirrhosis, chronically occluded portal vein. Portal hypertension and splenorenal portosystemic sh unting. Reviewed, dictated and finalized at location B.
--- NOTE | ~2021-01-03 | CT_ITS ---
EXAMINATION: CT brain wo con EXAM DATE: 01/03/2021 13:44 INDICATION: Confusion, bruising to left side of cheek and back. Symptoms for 2 days. TECHNIQUE: Spiral CT of the head was performed without contrast. Axial, coronal and sagittal images were reviewed. The dose-length product (DLP) for this examination was 529.67 mGy-cm. The exposure w as tailored according to patient size, and iterative reconstruction (ASIR) was used as additional dos e reduction technique. Comparison is made to prior examination from 01/10/2019. FINDINGS: There is no acute intraparenchymal hemorrhage. No evidence of intraparenchymal brain mass lesion. No evidence of acute infarction. Please note that initial head CT has limited sensitivity f or small or acute infarctions. There is moderate periventricular and subcortical hypodensity, nonspec ific but probably related to small vessel ischemic disease. There is mild to moderate prominence of the sulci and ventricles related to cerebral atrophy. There is intracranial carotid arterioscleros is. There are no extra-axial collections. There is no mass effect or midline shift. Patient has denton d bilateral ocular lens surgery. Soft tissue is unremarkable. The visualized sinuses and mastoid ai r cells are well aerated. Again there is a calvarial defect involving the right frontal bone with evidence of both remodeling o f the outer cortex probably chronic pressure erosion, but also some regions of loss of cortex. There is some soft tissue density replacing the expected location of the calvarium at this region. The inne r table is intact. Differential diagnosis includes surgical defect with overlying granulation tissue, large calvarial venous boss, or Paget's disease. Two-year stability goes against this malignancy. IMPRESSION: 1. No acute intracranial findings. 2. Chronic age related findings. 3. Stable right frontal calvarial defect. Reviewed, dictated and finalized at location B.
--- NOTE | 2021-01-03 12:21 | ECG_ITS ---
Measurements Intervals [place] Rate: 75 P: 138 OK: 190 QRS: 39 QRSD: 90 T: 10 QT: 391 QTc: 437 Interpretive Statements ELECTRONIC ATRIAL PACEMAKER ATYPICAL ECG Electronically Signed On 01-03-2021 15:48:16 CDT by Francisco Javier Simmons D.O.
[2021-01-03] MEDS: SODIUM CHLORIDE 0.9% IV 500 ML 999 ML IV CONT (12:44)
--- NOTE | 2021-01-03 12:55 | ED.GENADULT ---
HPI - General Adult General Chief complaint: Unspecified Stated complaint: pain on left side Time Seen by Provider: 01/03/21 11:47 Source: patient and RN notes reviewed Mode of arrival: ambulatory Limitations: no limitations History of Present Illness HPI narrative: Patient is a 75-year-old female who presents with family she does not speak Maltese has history of cirrhosis and was seen by primary care and found to have bruising from the left neck all the way down through the flank and abdomen. Patient had been complaining of some left-sided rib pain a few days earlier patient's family had noticed this and notes that she is not on any anticoagulation. Patient notes some mild discomfort in the left lateral chest. There is bruising from the left neck all the way down through the abdomen on this patient on the left side. Patient denies any blood in the urine or stool. Patient's family is helping to communicate with the patient. Patient is ANO x3 and normal mentation. Patient is [facility] at [facility] for her chronic illnesses Related Data Home Medications Medication Instructions Recorded Confirmed furosemide 20 mg PO DAILY 08/28/20 08/28/20 gabapentin 100 mg PO TID 08/28/20 08/28/20 lactulose 30 ml PO BID PRN 08/28/20 08/28/20 magnesium oxide 400 mg PO DAILY 08/28/20 08/28/20 pantoprazole 40 mg PO DAILY 08/28/20 08/28/20 spironolactone 25 mg PO DAILY 08/28/20 08/28/20 tadalafil (pulm. hypertension) 20 mg PO DAILY 08/28/20 08/28/20 potassium chloride 10 meq PO DAILY 01/03/21 01/03/21 Allergies Allergy/AdvReac Type Severity Reaction Status Date / Time codeine AdvReac Confusion Verified 01/03/21 11:47 Review of Systems Review of Systems: All systems reviewed & are unremarkable except as noted in HPI and below PMFSH Past Medical History Medical History Arthritis Asthma Burst fracture of lumbar vertebra Burst fracture of thoracic vertebra Cirrhosis Hepatitis C Hypertension Pacemaker TIA (transient ischemic attack) Vitamin D deficiency Surgical History Surgical History H/O cataract removal with insertion of prosthetic lens Family History Family History Other Unknown family medical history Social History Social History Social History: Patient lives at home with her daughter. She is listed as a full code. Her PCP is Morgan Arauz NP. She sees liver specialist at [facility] Smoking status: Never smoker Alcohol intake: never Substance use: never Gender identity (if verbalized by the patient): Female Spiritual care concerns: No Exam Narrative: Exam Narrative: GENERAL: Chronically ill-appearing, well-nourished, and in no acute distress. HEAD: Normocephalic, atraumatic. EYES: PERRLA and EOMI. ENT: Nares clear, no rhinorrhea or epistaxis. Mucous membranes moist. Oropharynx without tonsillar hypertrophy exudate or other lesions. NECK: Supple. No adenopathy or masses. No carotid bruits or JVD CHEST: Clear to auscultation. No respiratory distress. No wheezes rales or rhonchi HEART: Regular rate and rhythm. No murmur heard. Normal peripheral pulses. ABDOMEN: Soft, nontender, nondistended EXTREMITIES: Normal range of motion. No edema. SKIN: Warm, dry, no rash. Bruising from the left lateral neck through the left chest wall and flank that appears old NEURO: No focal deficits. Alert and oriented x3. Cranial nerves II through XII grossly intact PSYCH: Normal mood and affect. Course Course Emergency Course: Patient in the room at this time resting comfortably will be placed in hospital transfuse for her anemia likely from bleeding from the rib fracture seen no other concerning findings agreeing to stay in hospital hemodynamically stable at this time with ABCs and vital signs int
[2021-01-03 12:56] LABS: Alanine Aminotransferase 18 U/L (4-35); Albumin Level 3.1 g/dL (3.5-5.1); Alkaline Phosphatase 114 U/L (38-126); Anion Gap 5 mmol/L (8-16); Aspartate Amino Transferase 51 U/L (14-36); Bilirubin,Total 4.8 mg/dL (0.2-1.3); Blood Urea Nitrogen 19 mg/dL (7-17); Calcium 9.3 mg/dL (8.4-10.2); Carbon Dioxide 25 mmol/L (22-30); Chloride 102 mmol/L (98-107); Estimated Glomerular Filt Rate 40; Glucose 123 mg/dL (65-105); Lipase 260 U/L (23-300); Potassium 3.4 mmol/L (3.4-5.0); Sodium 132 mmol/L (137-145)
[2021-01-03 12:57] LABS: Lactic Acid Reflex 1.7 mmol/L (0.7-2.1)
[2021-01-03 13:04] LABS: Troponin I 0.023 ng/mL (0.000-0.034)
[2021-01-03 13:35] LABS: Basophils Percent Auto 0.3 % (0.2-1.2); Eosinophils Absolute Auto 0.2 K/mm3 (0-0.3); Immature Granulocyte Absolute 0.02 K/mm3 (0.00-0.031); Immature Granulocyte Percent A 0.5 % (0-0.5); Lymphocytes Absolute Auto 0.66 K/mm3 (0.9-3.2); Lymphocytes Percent Auto 17.5 % (18.3-44.2); Mean Corpuscular HGB Conc 34.2 g/dl (32-36); Mean Corpuscular Hemoglobin 34.3 pg (26-34); Mean Corpuscular Volume 100.5 fl (80-100); Mean Platelet Volume 9.9 fl (7.4-10.4); Monocytes Absolute Auto 0.5 K/mm3 (0.1-0.6); Neutrophils Absolute Auto 2.4 K/mm3 (1.3-6.7); Neutrophils Percent Auto 63.7 % (45.5-73.1); Platelet Count Result 66 k/mm3 (150-375); Red Blood Count 1.98 M/mm3 (4.2-5.4); Red Cell Distribution Width 15.5 % (11.5-14.5); White Blood Count 3.8 K/mm3 (4.5-10.0)
[2021-01-03 13:37] LABS: Hemoglobin 6.8 g/dL (12.0-15.0)
[2021-01-03 13:38] LABS: Hematocrit 19.9 % (37.0-47.0)
[2021-01-03 13:48] LABS: INR 1.6; Prothrombin Time 19.3 Seconds (11.1-14.7)
[2021-01-03 13:49] LABS: Partial Thromboplastin Time 37.3 SECONDS (22.3-36.8)
[2021-01-03 14:25] LABS: Add Urine Microscopic? NO; Appearance Urine Clear (Clear); Bilirubin Urine Negative (Negative); Blood Urine Negative (Negative); Color Urine Yellow (Yellow); Glucose Urine UA Negative (Negative); Ketones Urine Negative (Negative); Leukocyte Esterase Ur Negative LEU/UL (Negative); Nitrate Urine Negative (Negative); Protein Urine Negative (Negative); Specific Grav Ur 1.016 (1.001-1.035); Urobilinogen Urine Negative mg/dL (<2.0)
--- NOTE | 2021-01-03 15:00 | PM.IMHP ---
H&P: HPI History of Present Illness Date/Time: 01/03/21 15:00 Chief Complaint: Large area of bruising over the chest Narrative: This is a 75-year-old female with cirrhosis and anemia who presented to the emergency department earlier today via private vehicle from home for evaluation after she was noted to have a large area of bruising over her chest. The patient speaks Cantonese and there have been difficulties finding a coding specialist home health that speaks her particular dialect and thus her daughter Anshul does a majority of the translating. Several days ago the patient developed some discomfort at the site of a ?knot? that had formed on the left lateral chest, just over her left lateral ribs. She has been rubbing herbal oils on the area which seemed to soothe the pain. Sometime on Friday 1 of her daughters noticed an extensive area of bruising along the left flank, extending to the left chest and left side of the neck and they had an appointment today with her primary care provider who then directed the patient to the ER for further evaluation. The patient adamantly denies any recent falls or significant coughing. She will on occasion ?bump into things? but she cannot recall an occasion recently where this has happened. A CT of the chest, abdomen, and pelvis done in the emergency department showed an acute left 7th rib fracture posteriorly and several other nonacute findings. Her hemoglobin and hematocrit were quite a bit lower than what they typically run, presumably due to blood loss given her exam findings, and she is being admitted in this setting. I reviewed the imaging with Dr. Kwok, radiologist, and he does not see any areas of active bleeding nor does he see any significant hematoma on imaging. At the time my evaluation she has no specific complaints, specifically denying recent fall, syncope, near syncope, lightheadedness, chest pain, pleuritic pain, palpitations, orthopnea, PND, lower extremity edema, nausea, vomiting, melena, hematochezia, and hematuria. Review of Systems Review of Systems: Narrative: Twelve systems were reviewed with pertinent positives and negatives as per HPI. No fever, chills, or sweats. She denies recent cold and flu symptoms. No chest pain or pleuritic pain. She denies palpitations, orthopnea, PND, and lower extremity edema. She frequently complains of back pain and over the last 6 months or so it has been discovered that she has multiple vertebral fractures and evidence of chronic burst fractures on imaging. She denies any for recent falls, stating she has not had a fall for well over 4 months. Her appetite has been poor for several years since she was diagnosed with cirrhosis, and that is unchanged. No epistaxis, hematemesis, melena, hematochezia, or hematuria. Except as documented, all other systems were reviewed and are negative. [facility] Past Medical History Medical History (Updated 01/03/21 @ 18:24 by Lizzie Melo PA-C) Arthritis Asthma Burst fracture of lumbar vertebra Chronic, noted on imaging dating back to 08/23/2020. Burst fracture of thoracic vertebra Chronic, noted on imaging dating back to 08/23/2020. Cirrhosis Hepatitis C Hypertension Pacemaker Pancytopenia Pulmonary hypertension Transient ischemic attack Vitamin D deficiency Surgical History Surgical History (Updated 01/03/21 @ 18:18 by Lizzie Melo PA-C) History of cardiac pacemaker in situ History of cataract extraction with lens replacement History of orthopedic surgery ORIF of right wrist fracture. Family History Family History Other Unknown family medical history Social History Social History (Updated 01/03/21 @ 18:19 by Lizzie Melo PA-C) Social History: The patient lives with 1 of her daughters in [place]. 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 Lifelong nonsmoker. No alcohol or illicit substance use. Her daughter, Anshul Cedeno and Tere Cedeno are her surrogate decision
[2021-01-03] MEDS: SODIUM CHLORIDE 0.9% IV 250 ML 30 ML IV CONT (15:13)
[2021-01-03] MEDS: TUBING, BLOOD SET 1 EACH XX (15:13)
[2021-01-03 15:53] LABS: Troponin I 0.019 ng/mL (0.000-0.034)
--- NOTE | 2021-01-03 17:44 | ADMGEN ---
This patient, Stacie Mckenzie, was admitted to 2 Medical Room 246-. Patient/family oriented to hospital policies and general routines including ID bracelet, bed and alarms, visiting hours, pain management, procedures, bathroom and other care routines, personal items, smoking policy, room service/diet, and visiting hours. Information on how to activate the Rapid Response Team has been discussed. Patient/Family are encouraged to report perceived risks to care and to ask questions if they do not understand what they are told or what they should do.
[2021-01-03] MEDS: PHYTONADIONE 2.5 MG TAB PO (20:30)
[2021-01-03] MEDS: GABAPENTIN 300 MG CAPSULE PO (20:30)
[2021-01-03] MEDS: GABAPENTIN 100 MG CAPSULE PO (20:31)
[2021-01-03] MEDS: LACTULOSE 20 GM/30 ML UDC PO (20:31)
[2021-01-04] VITALS: BP 117/62; PULSE 71; PULSE 85; RESP 18; TEMP 36.8; O2SAT 96
[2021-01-04] MEDS: oxyCODONE HCL (*CRX) 5 MG TAB IR PO (02:14)
[2021-01-04 04:00] VITALS: BP 123/66; PULSE 78; RESP 16; TEMP 36.8; O2SAT 96
[2021-01-04 05:35] LABS: Basophils Percent Auto 0.4 % (0.2-1.2); Eosinophils Absolute Auto 0.2 K/mm3 (0-0.3); Eosinophils Percent Auto 4.7 % (0-4.4); Hematocrit 28.4 % (37.0-47.0); Hemoglobin 9.7 g/dL (12.0-15.0); Immature Granulocyte Absolute 0.03 K/mm3 (0.00-0.031); Immature Granulocyte Percent A 0.7 % (0-0.5); Immature Platelet Fraction Pct 1.5 % (0.9-11.2); Lymphocytes Absolute Auto 0.76 K/mm3 (0.9-3.2); Lymphocytes Percent Auto 17.1 % (18.3-44.2); Mean Corpuscular HGB Conc 34.2 g/dl (32-36); Mean Corpuscular Hemoglobin 32.7 pg (26-34); Mean Corpuscular Volume 95.6 fl (80-100); Mean Platelet Volume 10.1 fl (7.4-10.4); Monocytes Absolute Auto 0.6 K/mm3 (0.1-0.6); Monocytes Percent Auto 13.9 % (2.6-8.5); Neutrophils Absolute Auto 2.8 K/mm3 (1.3-6.7); Neutrophils Percent Auto 63.2 % (45.5-73.1); Platelet Count Result 61 k/mm3 (150-375); Red Blood Count 2.97 M/mm3 (4.2-5.4); White Blood Count 4.5 K/mm3 (4.5-10.0)
[2021-01-04 05:42] LABS: Anion Gap 5 mmol/L (8-16); Blood Urea Nitrogen 17 mg/dL (7-17); Calcium 8.4 mg/dL (8.4-10.2); Carbon Dioxide 20 mmol/L (22-30); Chloride 107 mmol/L (98-107); Estimated Glomerular Filt Rate 49; Glucose 98 mg/dL (65-105); Phosphorus 3.5 mg/dL (2.5-4.5); Potassium 4.1 mmol/L (3.4-5.0); Sodium 132 mmol/L (137-145)
[2021-01-04 05:59] LABS: INR 1.5; Prothrombin Time 18.4 Seconds (11.1-14.7)
[2021-01-04 06:00] LABS: Partial Thromboplastin Time 39.6 SECONDS (22.3-36.8)
[2021-01-04 07:14] LABS: IFOB Positive Control Positive; Immunochemical Fecal Occult Bl Negative (N)
[2021-01-04 08:00] VITALS: PULSE 73
--- NOTE | 2021-01-04 08:43 | PC.NURSE ---
Home med Tadalafil tubed to pharmacy.
--- NOTE | 2021-01-04 09:11 | PHAR ---
PATIENTS HOME MED OFTadalafil (Pulm. Hypertension) 20 mg tablet HAS BEEN VERIFIED
[2021-01-04] MEDS: LACTULOSE 20 GM/30 ML UDC PO (09:35)
[2021-01-04] MEDS: POTASSIUM CHLORIDE 10 MEQ TABLET.ER PO (09:35)
[2021-01-04] MEDS: SPIRONOLACTONE 25 MG TABLET PO (09:35)
[2021-01-04] MEDS: PANTOPRAZOLE 40 MG TABLET PO (09:35)
[2021-01-04] MEDS: FUROSEMIDE 20 MG TABLET PO (09:35)
[2021-01-04] MEDS: GABAPENTIN 100 MG CAPSULE PO ×2 (09:35→13:19)
[2021-01-04] MEDS: MAGNESIUM OXIDE 400 MG TABLET PO (09:35)
[2021-01-04 10:00] VITALS: BP 130/48; PULSE 64; RESP 18; TEMP 36.5; O2SAT 92
[2021-01-04 11:36] VITALS: BMI 30.2
[2021-01-04 12:00] VITALS: PULSE 66
--- NOTE | 2021-01-04 12:26 | PCNSR ---
On 01/04/21, the student,Shelly Chavarria, provided care and completed [facility] documentation on this patient. I have reviewed the student's documentation and agree with the findings.
[2021-01-04 12:32] LABS: Hematocrit 32.4 % (37.0-47.0)
[2021-01-04] MEDS: AZITHROMYCIN 250 MG TABLET 500 MG PO (13:19)
[2021-01-04 14:00] VITALS: BP 117/43; PULSE 67; RESP 20; TEMP 37.1; O2SAT 100
--- NOTE | 2021-01-04 14:02 | PM.DS ---
DS: Admitting Diagnosis Admitting Diagnosis Admitting Diagnosis: anemia, rib fracture DS: Discharge Diagnosis Discharge Diagnosis (1) Closed fracture of rib of left side: Code(s): S22.32XA - Fracture of one rib, left side, initial encounter for closed fracture Status: Acute Assessment and Plan: Patient has a closed left 7th rib fracture displaced posteriorly. Previous provider reviewed imaging with the radiologist and suspected that she probably had bleeding from an intercostal artery related to the rib fracture and in the setting of her coagulopathy due to underlying liver disease. There is no evidence of further bleeding on the scan and her hgb was stable at discharge. (2) Acute blood loss anemia: Code(s): D62 - Acute posthemorrhagic anemia Status: Acute Assessment and Plan: hgb 6.8 on admission and was 11.0 at discharge after receiving 2 units of blood. She also has a hx of cirrhosis. -bleeding likely due to above. stool occult blood negative. no symptoms of blood loss on exam. (3) Pancytopenia: Code(s): D61.818 - Other pancytopenia Status: Acute Assessment and Plan: A chronic finding for this patient, including thrombocytopenia. Most likely related to her underlying liver disease. (4) Coagulopathy: Code(s): D68.9 - Coagulation defect, unspecified Status: Acute Assessment and Plan: Chronic liver disease with history of hepatitis and cirrhosis with evidence of synthetic dysfunction including prolonged coagulation studies and low total protein and albumin levels. (5) Cirrhosis: Code(s): K74.60 - Unspecified cirrhosis of liver Status: Acute Assessment and Plan: Continue home medications which include furosemide, spironolactone, and lactulose. (6) Elevated serum creatinine: Code(s): R79.89 - Other specified abnormal findings of blood chemistry Status: Acute Assessment and Plan: improving at discharge DS: Summary Hospital Course Hospital Course: Patient is a 75-year-old female with a history of cirrhosis who presented emergency room for bruising and pain on the abdomen, under the left breast, and on the flank. She was found to have an acute left 7th rib fracture posteriorly. CT also showed cardiomegaly with possible mild CHF exacerbation, scattered small regions of tree-in-bud airspace disease with nonspecific bronchiolitis, dilated pulmonary arteries, numerous burst fractures, and cirrhosis. Vitals in the ER were temperature 97.3?, pulse 78, respiratory rate 18, blood pressure 115/51, pulse ox 99 on room air. Initial white blood cell count 3.8, hemoglobin 6.8, hematocrit 19.9, platelets [id number]. BMP showed a creatinine of 1.3. Patient was admitted to the hospitalist service and given 2 units of blood and did well with this. She worked with physical therapy and was able to get around. Family and patient were agreeable for her to go home. The patient denied any abuse and I spoke with the daughter about the patient needing a bone scan outpatient as she has multiple back fractures and will need to be monitored closely and may need additional medications. I spoke with the patient with daughter on the phone and the [email or web address] paper baler although the patient has decreased hearing and there were obstacles with this. The daughter states she cannot come in until 730 p.m. so we had to transit over the phone. The online paper baler said the patient cannot hear her well and does not understand her very well. However, we were able to speak with her about her pain. She said she has mild pain under her left breast and her armpit (where her ribs are). She has no back pain or shortness of breath. Daughter states that she occasionally wears oxygen as needed at home. Her oxygen saturation was 96%. patient stated she wanted to go home and daughter agreed to discharge and will follow-up with primary care physician Status at Disch
== END 2021-01-04 17:00 | disposition home or self-care (01) ==
LOC: ANHED 15:39 → ANH2MED 16:00
PROVIDERS: Emergency Medicine Emergency Medical Services; Physician Assistant; Admitting Provider Hospitalist; Emergency Provider Emergency Medicine; PCP Nurse Practitioner Family; Visit Provider Physician Assistant
DX: S20.212A Contusion of left front wall of thorax, initial encounter (principal); S22.32XA Fracture of one rib, left side, initial encounter for closed fracture; X58.XXXA Exposure to other specified factors, initial encounter; D62 Acute posthemorrhagic anemia; D61.818 Other pancytopenia; D68.9 Coagulation defect, unspecified; I10 Essential (primary) hypertension; K74.60 Unspecified cirrhosis of liver; R79.89 Other specified abnormal findings of blood chemistry; Z95.0 Presence of cardiac pacemaker; Z86.73 Personal history of transient ischemic attack (TIA), and cerebral infarction without residual deficits
CPT/HCPCS: 36415; 36430; 70450; 71260; 74177; 80048; 80053; 81003; 82274; 83605; 83690; 84100; 84484; 85014; 85018; 85025; 85055; 85610; 85730; 86140; 86850; 86900; 86901; 86920; 87040; 93005; 96360; 97161; 97165; 99285; A9270; G0378; J7040; J7050; P9016; Q9967

== ENCOUNTER 2021-03-13 04:40 | Inpatient (IN) | payer MEDICARE, MEDICAID, SELFPAY ==
[2021-03-13] VITALS (22 sets, daily range): BP systolic 105–151; BP diastolic 40–91; PULSE 60–83; RESP 10–20; TEMP 36.2–37.1; O2SAT 96–100; BMI 32.8
--- NOTE | ~2021-03-13 | US_ITS ---
EXAMINATION: US venous doppler [facility] DATE: 03/14/2021 13:20 INDICATION: Lower limb edema. TECHNIQUE: Grayscale ultrasound images without and with compression and Doppler ultrasound images of the bilateral lower extremity veins were obtained. COMPARISON: None. FINDINGS: The visualized portions of right common femoral vein, profunda (deep) femoral vein, femoral vein, pop liteal vein, peroneal veins, posterior tibial veins, and greater saphenous vein outflow are patent. The visualized portions of left common femoral vein, profunda femoral vein, femoral vein, popliteal v ein, peroneal veins, posterior tibial veins, and greater saphenous vein outflow are patent. IMPRESSION: 1. No deep venous thrombosis. Reviewed, dictated and finalized at location A.
--- NOTE | ~2021-03-13 | CT_ITS ---
EXAMINATION: CT brain wo con DATE: 03/13/2021 05:12 INDICATION: Posterior head injury from a fall. Vomiting. TECHNIQUE: Computed tomography (CT) of the head was performed without intravenous contrast. The mA wa s adjusted according to patient size. Iterative reconstruction technique was employed. Exam dose: 60 5.33 mGy-cm total exam DLP. COMPARISON: 01/03/2021 and 01/10/2019 CT brain FINDINGS: Chronic stable right frontal calvarial defect with prominent concavity of the external kaci ex, not significantly changed since 01/20/2019. Bilateral basal ganglia calcifications. There is nonspecific diminished attenuation of the subcortica l and periventricular cerebral white matter, likely due to chronic small vessel ischemic changes. The re are some carotid siphon internal carotid artery calcifications. No intracranial mass lesion or hemorrhage, midline shift or mass effect effect. Ventricles are normal size. No subdural or epidural hematoma. Paranasal sinuses and mastoid air cells are unremarkable. No fracture of the skull is evident. Left occipital area cephalohematoma and slight subcutaneous emph ysema is detected; no coup or contrecoup injury is identified intracranially. IMPRESSION: Left occipital cephalohematoma; no skull fracture tor coup or contrecoup intracranial in jury is identified No significant change since 01/10/2019 Reviewed, dictated and finalized at Location A. Reviewed, dictated and finalized at location A. IMPRESSION: Left occipital cephalohematoma; no skull fracture tor coup or cont recoup intracranial injury is identified No significant change since 01/10/2019
--- NOTE | ~2021-03-13 | US_ITS ---
EXAMINATION: US venous doppler [facility] DATE: 03/14/2021 13:22 INDICATION: Left upper limb swelling TECHNIQUE: Grayscale ultrasound images without and with compression and Doppler ultrasound images of the left upper extremity veins were obtained. COMPARISON: 05/03/2016 FINDINGS: The left internal jugular vein, subclavian vein, axillary vein, brachial veins, basilic vein, cephali c vein, radial vein, and ulnar vein are patent. IMPRESSION: 1. No evidence of deep venous thrombosis. Reviewed, dictated and finalized at location B.
--- NOTE | ~2021-03-13 | CT_ITS ---
EXAMINATION: CT cervical spine wo con DATE: 03/13/2021 05:12 INDICATION: Fall TECHNIQUE: Computed tomography (CT) of the cervical spine was performed without intravenous contrast. Automated exposure control and iterative reconstruction technique were employed. Exam dose: 260.58 mGy-cm total exam DLP. COMPARISON: None FINDINGS: There is diffuse osteopenia. C1 and C2 are normally aligned and the odontoid process is intact. No fracture or dislocation, locked facet or prevertebral soft tissue swelling is detected. Moderate degenerative disc disease at C4-5 and moderately severe degenerative disc disease at C5 6267 . There is degenerative change at the apophyseal and uncovertebral joints. IMPRESSION: Cervical spondylosis and diffuse osteopenia; no fracture Reviewed, dictated and finalized at Location [facility]. Reviewed, dictated and finalized at location A.
--- NOTE | ~2021-03-13 | XR_ITS ---
XR chest 1V DATE: 03/13/2021 05:15 INDICATION: Shortness of breath TECHNIQUE: AP view COMPARISON: 01/03/2021 CT chest abdomen pelvis FINDINGS: A left-sided AICD/pacemaker device with leads overlying right atrium and right ventricle. C ardiomegaly. Aortic calcification, ectasia and unfolding. Mild infiltrate or atelectasis is suggested in the lower lung zones, left greater than right. Pulmona ry vascular redistribution may indicate mild pulmonary venous hypertension. Minimal if any pleural effusion. No pneumothorax. Diffuse osteopenia. IMPRESSION: Cardiomegaly Pulmonary vascular redistribution may indicate mild pulmonary venous hypertension Left-sided AICD/pacemaker Mild infiltrate or atelectasis in the lower lung zones, left greater than right Reviewed, dictated and finalized at location A. IMPRESSION: Cardiomegaly Pulmonary vascular redistribution may indicate mild pulmonary venous hypertensi on Left-sided AICD/pacemaker Mild infiltrate or atelectasis in the lower lung zones, left greater than right
[2021-03-13 05:03] LABS: Basophils Absolute Auto 0.1 K/mm3 (0.0-0.1); Basophils Percent Auto 0.9 % (0.2-1.2); Eosinophils Absolute Auto 0.8 K/mm3 (0-0.3); Hematocrit 28.6 % (37.0-47.0); Hemoglobin 9.1 g/dL (12.0-15.0); Immature Granulocyte Absolute 0.01 K/mm3 (0.00-0.031); Immature Granulocyte Percent A 0.2 % (0-0.5); Lymphocytes Percent Auto 14.7 % (18.3-44.2); Mean Corpuscular HGB Conc 31.8 g/dl (32-36); Mean Corpuscular Volume 106.7 fl (80-100); Mean Platelet Volume 10.1 fl (7.4-10.4); Monocytes Absolute Auto 0.6 K/mm3 (0.1-0.6); Monocytes Percent Auto 10.8 % (2.6-8.5); Neutrophils Absolute Auto 3.2 K/mm3 (1.3-6.7); Neutrophils Percent Auto 59.4 % (45.5-73.1); Platelet Count Result 84 k/mm3 (150-375); Red Blood Count 2.68 M/mm3 (4.2-5.4); Red Cell Distribution Width 15.1 % (11.5-14.5); White Blood Count 5.4 K/mm3 (4.5-10.0)
[2021-03-13 05:16] LABS: INR 1.3; Prothrombin Time 16.3 Seconds (11.1-14.7)
[2021-03-13 05:17] LABS: Partial Thromboplastin Time 40.3 SECONDS (22.3-36.8)
[2021-03-13] MEDS: ONDANSETRON INJ 4 MG/2 ML VIAL IV PUSH (05:20)
[2021-03-13 05:22] LABS: Alanine Aminotransferase 24 U/L (4-35); Albumin Level 2.7 g/dL (3.5-5.1); Alkaline Phosphatase 197 U/L (38-126); Anion Gap 1 mmol/L (8-16); Aspartate Amino Transferase 55 U/L (14-36); Bilirubin,Total 2.5 mg/dL (0.2-1.3); Blood Urea Nitrogen 18 mg/dL (7-17); Calcium 8.5 mg/dL (8.4-10.2); Carbon Dioxide 29 mmol/L (22-30); Chloride 103 mmol/L (98-107); Estimated Glomerular Filt Rate > 60; Glucose 124 mg/dL (65-110); Potassium 3.9 mmol/L (3.4-5.0); Sodium 133 mmol/L (137-145)
--- NOTE | 2021-03-13 07:18 | ED.FALL ---
HPI - Fall General Chief Complaint: Fall <Marilee Barron MD - Last Filed: 03/14/21 07:15> Stated Complaint: glf - struck back of head with lac/hematoma <Marilee Barron MD - Last Filed: 03/14/21 07:15> Time Seen by Provider: 03/13/21 04:42 <Marilee Barron MD - Last Filed: 03/14/21 07:15> Source: patient and RN notes reviewed <Marilee Barron MD - Last Filed: 03/14/21 07:15> Mode of arrival: ambulatory <Marilee Barron MD - Last Filed: 03/14/21 07:15> Limitations: language barrier (patient does not speak lithuanian) <Marilee Barron MD - Last Filed: 03/14/21 07:15> History of Present Illness HPI Narrative: This is a 76 year old Cantonese female who presents for evaluation with family for a head injury. Patient's daughter states patient fell backwards and hit head on cabinet. IT is unclear if she had LOC. Patient has presented via EMS with nausea and vomiting now. Unable to state any other complaints. <Marilee Barron MD - Last Filed: 03/14/21 07:15> Related Data Home Medications: Home Medications Medication Instructions Recorded Confirmed furosemide 20 mg PO DAILY 08/28/20 03/13/21 gabapentin 100 mg PO TID 08/28/20 03/13/21 magnesium oxide 400 mg PO DAILY 08/28/20 03/13/21 pantoprazole 40 mg PO DAILY 08/28/20 03/13/21 tadalafil (pulm. hypertension) 40 mg PO DAILY 08/28/20 03/13/21 gabapentin 300 mg PO TID 01/03/21 03/13/21 oxycodone 5 mg PO QID PRN 01/03/21 03/13/21 potassium chloride 10 meq PO DAILY 01/03/21 03/13/21 albuterol sulfate [Ventolin HFA] 2 puff INHALATION Q4H PRN 03/13/21 03/13/21 <Marilee Barron MD - Last Filed: 03/14/21 07:15> Allergies/Adverse Reactions: Allergies Allergy/AdvReac Type Severity Reaction Status Date / Time codeine AdvReac Confusion Verified 03/13/21 07:15 <Marilee Barron MD - Last Filed: 03/14/21 07:15> Review of Systems Review of Systems: ROS unobtainable: Yes unobtainable due to mental status (hard of hearing, language barrier) and other <Marilee Barron MD - Last Filed: 03/14/21 07:15> [facility] Past Medical History Medical History: Medical History (Updated 03/13/21 @ 13:55 by Lizzie Melo PA-C) Arthritis Asthma Burst fracture of lumbar vertebra Chronic, noted on imaging dating back to 08/23/2020. Burst fracture of thoracic vertebra Chronic, noted on imaging dating back to 08/23/2020. Cirrhosis Hepatitis C Hypertension Pacemaker Pulmonary hypertension Thrombocytopenia Transient ischemic attack Vitamin D deficiency <Marilee Barron MD - Last Filed: 03/14/21 07:15> Surgical History Surgical History: Surgical History (Updated 01/03/21 @ 18:18 by Lizzie Melo PA-C) History of cardiac pacemaker in situ History of cataract extraction with lens replacement History of orthopedic surgery ORIF of right wrist fracture. <Marilee Barron MD - Last Filed: 03/14/21 07:15> Family History Family History: Family History Other Unknown family medical history <Marilee Barron MD - Last Filed: 03/14/21 07:15> Social History Social History: Social History (Updated 03/13/21 @ 13:45 by Lizzie Melo PA-C) Social History: Ms. Mckenzie lives with one of her daughters in [place]. 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 Lifelong nonsmoker. No alcohol or illicit substance use. Her daughters, Anshul Cedeno and Tere Cedeno, are her surrogate decision makers. Code status: Full code. <Marilee Barron MD - Last Filed: 03/14/21 07:15> Exam Const: Other: lethargic <Marilee Barron MD - Last Filed: 03/14/21 07:15> HENMT: Head: hematoma (left posterior) left occipital <Marilee Barron MD - Last Filed: 03/14/21 07:15> Eyes: Pupils: Equal, round and reactive pupils present <Marilee Barron MD - Last Filed: 03/14/21 07:15> EOM: EOMs intact bilaterally <Marilee Barron MD - Last Filed: 03/14/21 07
--- NOTE | 2021-03-13 07:23 | ECG_ITS ---
Measurements Intervals [place] Rate: 69 P: 106 IN: 212 QRS: 51 QRSD: 81 T: 42 QT: 419 QTc: 452 Interpretive Statements ELECTRONIC ATRIAL PACEMAKER ATYPICAL ECG Electronically Signed On 03-13-2021 8:54:05 CDT by Francisco Javier Simmons D.O.
[2021-03-13 07:33] LABS: Alveolar/Arterial O2 Gradient 63.3 mmHg; Base Excess ABG 3.9 mEq/l (+/-2.0); Carboxyhemoglobin 0.5 % THb (0-2.0); Fractional Inspired Oxygen 32 %; HCO3 ABG 30.1 mEq/l (22.0-26.0); Methemoglobin ABG 0.3 %THb (0-1.5); Oxygen Content ABG 12.8 %vol (16.0-22.0); Oxygen Saturation ABG 97.3 % (95.0-100.0); Oxyhemoglobin 95.6 % THb (90.0-100.0); PCO2 ABG 54.2 mmHg (35.0-45.0); PO2 ABG 101.4 mmHg (80.0-100.0); PO2 FiO2 Ratio Arterial Blood 3.17 %; Reduced Hemoglobin 3.6 %THb (0-5.0); Total Hemoglobin 9.4 g/dL (12.0-18.0); pH ABG 7.362 (7.350-7.450)
[2021-03-13 07:34] LABS: Device NASAL CANNULA; Modified Allen's Test Pass; Site Drawn RIGHT RADIAL
[2021-03-13 08:26] LABS: Ammonia 81 umol/L (9-30)
[2021-03-13 08:37] LABS: NT Pro B Type Natriuretic Pept 537 pg/mL (5-100); Troponin I 0.031 ng/mL (0.000-0.034)
[2021-03-13 08:59] LABS: Add Urine Microscopic? YES; Appearance Urine Clear (Clear); Bilirubin Urine Negative (Negative); Blood Urine 1+ (Negative); Color Urine Yellow (Yellow); Glucose Urine UA Negative (Negative); Ketones Urine Negative (Negative); Leukocyte Esterase Ur Negative LEU/UL (Negative); Mucus Urine Rare /lpf; Nitrate Urine Negative (Negative); Protein Urine Negative (Negative); Specific Grav Ur 1.013 (1.001-1.035); Squamous Epithelial Cell Urine Rare /hpf (Few); Urobilinogen Urine Negative mg/dL (<2.0); WBC Urine 0-3 /hpf
[2021-03-13] MEDS: SODIUM CHLORIDE 0.9% IV 1,000 ML 100 ML IV CONT (09:45)
[2021-03-13] MEDS: LACTULOSE ENEMA 200 GM/1,000 ML ENEMA RECTAL (09:53)
--- NOTE | 2021-03-13 11:53 | ADMGEN ---
This patient, Stacie Mckenzie, was admitted to IMU Room 211-01. Patient/family oriented to hospital policies and general routines including ID bracelet, bed and alarms, visiting hours, pain management, procedures, bathroom and other care routines, personal items, smoking policy, room service/diet, and visiting hours. Information on how to activate the Rapid Response Team has been discussed. Patient/Family are encouraged to report perceived risks to care and to ask questions if they do not understand what they are told or what they should do.
--- NOTE | 2021-03-13 14:00 | PM.IMHP ---
H&P: HPI History of Present Illness Date/Time: 03/13/21 14:00 Chief Complaint: Fall. Narrative: This is a 76-year-old female with cirrhosis and anemia who presented to the emergency department earlier today via EMS from home for evaluation after a fall. The patient speaks Cantonese and is extremely hard of hearing. Unfortunately our video interpreting system does not project volume well and the patient is unable to understand the nutritional services cook. As such a majority of the following is obtained via a review of her electronic medical records including a review of and H & P done by myself 2 months ago. I have yet to get in touch with her daughters. According to EMS documentation the patient fell out of bed this morning and struck her head on the corner of the dresser. Family members could not get her up and EMS was summoned and apparently she began vomiting on their arrival. I was told that the patient seemed confused and subsequent workup showed an elevated ammonia level of 81 and she is being admitted in this setting. Daughters indicate that the patient was confused this morning when she fell and that she has called them confused as to why she was in the hospital. Aside from headache she has no specific complaints, specifically denying fever, chills, sweats, auditory visual changes, focal weakness, chest pain, shortness of breath (she appears to be mildly tachypneic and wheezy though daughter states that is not unusual), nausea, vomiting, and diarrhea, and dysuria. Review of Systems Review of Systems: Review of systems was obtained from her daughter via phone as we could not get the patient to understand the tool setter due to inability to turn the volume up any further. [facility] Past Medical History Medical History (Updated 03/13/21 @ 13:55 by Lizzie Melo PA-C) Arthritis Asthma Burst fracture of lumbar vertebra Chronic, noted on imaging dating back to 08/23/2020. Burst fracture of thoracic vertebra Chronic, noted on imaging dating back to 08/23/2020. Cirrhosis Hepatitis C Hypertension Pacemaker Pulmonary hypertension Thrombocytopenia Transient ischemic attack Vitamin D deficiency Surgical History Surgical History (Updated 01/03/21 @ 18:18 by Lizzie Melo PA-C) History of cardiac pacemaker in situ History of cataract extraction with lens replacement History of orthopedic surgery ORIF of right wrist fracture. Family History Family History Other Unknown family medical history Social History Social History (Updated 03/13/21 @ 13:45 by Lizzie Melo PA-C) Social History: Ms. Mckenzie lives with one of her daughters in [place]. 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 Lifelong nonsmoker. No alcohol or illicit substance use. Her daughters, Anshul Cedeno and Tere Cedeno, are her surrogate decision makers. Code status: Full code. Meds Home Medications and Allergies Home Medications Medication Instructions Recorded Confirmed Type furosemide 20 mg PO DAILY 08/28/20 03/13/21 History gabapentin 100 mg PO TID 08/28/20 03/13/21 History magnesium oxide 400 mg PO DAILY 08/28/20 03/13/21 History pantoprazole 40 mg PO DAILY 08/28/20 03/13/21 History tadalafil (pulm. hypertension) 40 mg PO DAILY 08/28/20 03/13/21 History gabapentin 300 mg PO TID 01/03/21 03/13/21 History oxycodone 5 mg PO QID PRN 01/03/21 03/13/21 History potassium chloride 10 meq PO DAILY 01/03/21 03/13/21 History albuterol sulfate [Ventolin HFA] 2 puff INHALATION Q4H PRN 03/13/21 03/13/21 History Allergies Allergy/AdvReac Type Severity Reaction Status Date / Time codeine AdvReac Confusion Verified 03/13/21 07:15 Vital Signs Vital Signs - 24 hr 03/13/21 04:41 03/13/21 07:14 03/13/21 07:36 Temperature Pulse Rate 60 82 82 Respiratory Rate 16 10 L 12 Blood Pressure 151/91 H 128/59 L Pulse Oximetry 99 96 100 03/13/21 07:45 03/13/21 07:46 03/13/21 08:00 Temperature Pulse Rate 79
[2021-03-14] VITALS (17 sets, daily range): BP systolic 123–134; BP diastolic 42–62; PULSE 62–85; RESP 16–22; TEMP 36.2–37; O2SAT 94–100
[2021-03-14 05:07] LABS: Hematocrit 25.3 % (37.0-47.0); Hemoglobin 8.4 g/dL (12.0-15.0); Immature Platelet Fraction Pct 0.9 % (0.9-11.2); Mean Corpuscular HGB Conc 33.2 g/dl (32-36); Mean Corpuscular Hemoglobin 35.1 pg (26-34); Mean Corpuscular Volume 105.9 fl (80-100); Mean Platelet Volume 10.6 fl (7.4-10.4); Platelet Count Result 74 k/mm3 (150-375); Red Blood Count 2.39 M/mm3 (4.2-5.4); Red Cell Distribution Width 14.8 % (11.5-14.5); White Blood Count 7.3 K/mm3 (4.5-10.0)
[2021-03-14 05:17] LABS: Alanine Aminotransferase 19 U/L (4-35); Albumin Level 2.1 g/dL (3.5-5.1); Alkaline Phosphatase 154 U/L (38-126); Anion Gap 0 mmol/L (8-16); Aspartate Amino Transferase 42 U/L (14-36); Blood Urea Nitrogen 18 mg/dL (7-17); Calcium 7.9 mg/dL (8.4-10.2); Carbon Dioxide 30 mmol/L (22-30); Chloride 103 mmol/L (98-107); Estimated Glomerular Filt Rate > 60; Glucose 121 mg/dL (65-110); Magnesium 1.9 mg/dL (1.6-2.3); Potassium 4.3 mmol/L (3.4-5.0); Sodium 133 mmol/L (137-145)
[2021-03-14 05:19] LABS: Ammonia 71 umol/L (9-30)
[2021-03-14 05:25] LABS: Alveolar/Arterial O2 Gradient 64.4 mmHg; Base Excess ABG 4.3 mEq/l (+/-2.0); Carboxyhemoglobin 0.3 % THb (0-2.0); Fractional Inspired Oxygen 24 %; Methemoglobin ABG 0.5 %THb (0-1.5); Oxygen Content ABG 11.7 %vol (16.0-22.0); Oxyhemoglobin 86.5 % THb (90.0-100.0); PCO2 ABG 44.2 mmHg (35.0-45.0); PO2 ABG 54.1 mmHg (80.0-100.0); PO2 FiO2 Ratio Arterial Blood 2.25 %; Reduced Hemoglobin 12.7 %THb (0-5.0); Total Hemoglobin 9.6 g/dL (12.0-18.0); pH ABG 7.435 (7.350-7.450)
[2021-03-14 05:26] LABS: Device NASAL CANNULA; Modified Allen's Test Pass; Site Drawn RIGHT RADIAL
[2021-03-14] MEDS: LACTULOSE 20 GM/30 ML UDC PO ×3 (08:28→18:20)
--- NOTE | 2021-03-14 09:07 | PM.IMPN ---
Progress Note: A&P Assessment and Plan (1) Fall from ground level: Code(s): W18.30XA - Fall on same level, unspecified, initial encounter Status: Acute (2) Closed head injury: Code(s): S09.90XA - Unspecified injury of head, initial encounter Status: Acute (3) Traumatic hematoma of scalp: Code(s): S00.03XA - Contusion of scalp, initial encounter Status: Acute (4) Hyperammonemia: Code(s): E72.20 - Disorder of urea cycle metabolism, unspecified Status: Acute Assessment and Plan: Secondary to cirrhosis (5) Cirrhosis: Code(s): K74.60 - Unspecified cirrhosis of liver Status: Acute Assessment and Plan: Secondary to hepatitis-C (6) Thrombocytopenia: Code(s): D69.6 - Thrombocytopenia, unspecified Status: Acute (7) Pulmonary hypertension: Code(s): I27.20 - Pulmonary hypertension, unspecified Status: Acute (8) Acute hepatic encephalopathy: Code(s): K72.00 - Acute and subacute hepatic failure without coma Status: Acute Assessment and Plan: Patient noted to have elevated ammonia level. mentation has improved now that pneumonia is down trending (9) Hepatitis C: Code(s): B19.20 - Unspecified viral hepatitis C without hepatic coma Status: Acute Additional Plan 03/13/21 The patient presented today after she fell backwards and hit her head on her dresser at home. She has a fairly large scalp hematoma on the left posterior occipital region. I was told that she was also confused, possibly related to elevated ammonia levels. She was given a lactulose enema in the emergency department she seems very alert at the time my evaluation. ABG showed hypercarbia with a pCO2 of 54.2 however her pH is compensated she seems in no respiratory distress. Continue lactulose. Hemoglobin and hematocrit are stable on review of previous labs. She has chronic thrombocytopenia which is also stable. Initiate fall precautions. PT/OT consulted. 03/14/21 The patient doing okay complains of right jaw pain however she is able to eat and speak. Mentation is improving continues on lactulose case reviewed with RN. Subjective Date/time seen: 03/14/21 09:07 Patient lying in bed complains of right jaw pain per RN has been able to eat breakfast and is speaking without complaint. CT head reviewed Exam Narrative: GEN: NAD, alert, cooperative HEENT: NCAT, MMM, EOMI Neck: no JVD Heart: S1S2 RRR Lungs: Clear to auscultation bilaterally Abd: soft, NT, ND, bowel sounds normoactive Ext: moves all, no cyanosis, no clubbing, no edema Neuro: Cranial nerves intact no focal neurological deficits noted Psych: mood and affect congruent Objective Data Vital Signs Vital Signs: Vital Signs - 24 hr 03/13/21 10:15 03/13/21 10:50 03/13/21 11:20 Temperature 97.2 F L Pulse Rate 76 70 61 Respiratory Rate 12 16 16 Blood Pressure 116/49 L 110/57 L Pulse Oximetry 100 100 100 03/13/21 12:00 03/13/21 14:00 03/13/21 16:00 Temperature 97.1 F L Pulse Rate 73 70 64 Respiratory Rate 16 Blood Pressure 109/53 L Pulse Oximetry 100 03/13/21 18:00 03/13/21 20:00 03/13/21 22:00 Temperature 97.6 F Pulse Rate 70 73 64 Respiratory Rate 20 Blood Pressure 105/79 Pulse Oximetry 96 03/13/21 23:44 03/14/21 00:00 03/14/21 02:00 Temperature 98.7 F Pulse Rate 61 65 62 Respiratory Rate 20 Blood Pressure 107/40 L Pulse Oximetry 96 03/14/21 03:13 03/14/21 04:00 03/14/21 06:00 Temperature 98.3 F Pulse Rate 72 78 Respiratory Rate 20 Blood Pressure 124/62 Pulse Oximetry 94 97 03/14/21 08:00 Temperature 97.2 F L Pulse Rate 72 Respiratory Rate 16 Blood Pressure 134/52 L Pulse Oximetry 99 Intake/Output Intake/Output: Intake & Output 03/11/21 03/12/21 03/13/21 03/14/21 23:59 23:59 23:59 23:59 Intake Total 500 100 Output Total 500 Balance 0 100 Meds/Results Medications: Active M
[2021-03-14] MEDS: ACETAMINOPHEN 325 MG TABLET 650 MG PO ×2 (12:03→18:20)
[2021-03-14] MEDS: ALBUTEROL SULFATE NEB 2.5 MG/3 ML INH 1.25 MG INHALATION (14:47)
[2021-03-15] VITALS (14 sets, daily range): BP systolic 108–145; BP diastolic 41–56; PULSE 61–80; RESP 15–26; TEMP 36.2–37.1; O2SAT 96–100
[2021-03-15 05:03] LABS: Ammonia 29 umol/L (9-30)
--- NOTE | 2021-03-15 07:39 | WPDCDIQUERY2 ---
CDI Query Clarification Request -Acute hepatic encephalopathy documented by EDP -Ammonia 81 on arrival, 03/14 ammonia 71, 03/15 ammonia 29 -Lactulose enema given and lactulose 20 gm po tid ordered - I was told that she was also confused, possibly related to elevated ammonia levels documented in H&P -No further mention of acute hepatic encephalopathy Please clarify if acute hepatic encephalopathy has been ruled in or ruled out. <Janell Montanez RN - Last Filed: 03/15/21 07:43> pt has hepatic encephalopathy ruled in <Marta Cornejo MD - Last Filed: 03/15/21 19:21>
[2021-03-15] MEDS: ALBUTEROL SULFATE NEB 2.5 MG/3 ML INH 1.25 MG INHALATION ×2 (09:33→17:25)
[2021-03-15] MEDS: FUROSEMIDE INJ 40 MG/4 ML VIAL 20 MG IV PUSH (17:19)
--- NOTE | 2021-03-15 19:17 | PM.IMPN ---
Progress Note: A&P Assessment and Plan (1) Fall from ground level: Code(s): W18.30XA - Fall on same level, unspecified, initial encounter Status: Acute (2) Closed head injury: Code(s): S09.90XA - Unspecified injury of head, initial encounter Status: Acute (3) Traumatic hematoma of scalp: Code(s): S00.03XA - Contusion of scalp, initial encounter Status: Acute (4) Hyperammonemia: Code(s): E72.20 - Disorder of urea cycle metabolism, unspecified Status: Acute Assessment and Plan: Secondary to cirrhosis (5) Cirrhosis: Code(s): K74.60 - Unspecified cirrhosis of liver Status: Acute Assessment and Plan: Secondary to hepatitis-C (6) Thrombocytopenia: Code(s): D69.6 - Thrombocytopenia, unspecified Status: Acute (7) Pulmonary hypertension: Code(s): I27.20 - Pulmonary hypertension, unspecified Status: Acute (8) Acute hepatic encephalopathy: Code(s): K72.00 - Acute and subacute hepatic failure without coma Status: Acute Assessment and Plan: Patient noted to have elevated ammonia level. mentation has improved now that pneumonia is down trending (9) Hepatitis C: Code(s): B19.20 - Unspecified viral hepatitis C without hepatic coma Status: Acute Additional Plan 03/13/21 The patient presented today after she fell backwards and hit her head on her dresser at home. She has a fairly large scalp hematoma on the left posterior occipital region. I was told that she was also confused, possibly related to elevated ammonia levels. She was given a lactulose enema in the emergency department she seems very alert at the time my evaluation. ABG showed hypercarbia with a pCO2 of 54.2 however her pH is compensated she seems in no respiratory distress. Continue lactulose. Hemoglobin and hematocrit are stable on review of previous labs. She has chronic thrombocytopenia which is also stable. Initiate fall precautions. PT/OT consulted. 03/14/21 The patient doing okay complains of right jaw pain however she is able to eat and speak. Mentation is improving continues on lactulose case reviewed with RN. 03/15/2021 Ammonia now below 30 patient appears to be oriented to self and place. She is noted to have audible wheezing today with bilateral crackles Lasix ordered as well as breathing treatment. Overall patient is doing well she is cleared to move out of IMU to [facility]. Anticipate discharge home with home health care in 24-48 hours Subjective Date/time seen: 03/15/21 19:17 Patient sitting up in bed eating audible wheezing heard across the room. Case reviewed with RN patient reporting improvement of pain in her right jaw Exam Narrative: GEN: NAD, alert, cooperative HEENT: NCAT, MMM, EOMI Neck: no JVD Heart: S1S2 RRR Lungs: Bilateral crackles with wheezing Abd: soft, NT, ND, bowel sounds normoactive Ext: moves all, no cyanosis, no clubbing, no edema Neuro: Cranial nerves intact no focal neurological deficits noted Psych: mood and affect congruent Objective Data Vital Signs Vital Signs: Vital Signs - 24 hr 03/14/21 20:00 03/14/21 23:35 03/15/21 00:00 Temperature 98.7 F Pulse Rate 64 67 Respiratory Rate 21 H Blood Pressure 108/41 L Pulse Oximetry 96 96 99 03/15/21 03:45 03/15/21 04:00 03/15/21 08:00 Temperature 98.5 F 98.1 F Pulse Rate 65 72 Respiratory Rate 20 16 Blood Pressure 120/56 L 139/55 L Pulse Oximetry 96 97 98 03/15/21 09:34 03/15/21 09:42 03/15/21 10:00 Temperature Pulse Rate 67 80 63 Respiratory Rate 22 H 18 Blood Pressure Pulse Oximetry 03/15/21 12:00 03/15/21 16:00 03/15/21 17:27 Temperature 97.1 F L 98 F Pulse Rate 61 64 66 Respiratory Rate 16 22 H 26 H Blood Pressure 123/51 L 145/53 H Pulse Oximetry 100 98 Intake/Output Intake/Output: Intake & Output 03/12/21 03/13/21 03/14/21 03/15/21 23:59 23:59 23:59 23:59 Intake Total 500 830
[2021-03-15] MEDS: ACETAMINOPHEN 325 MG TABLET 650 MG PO (21:47)
[2021-03-16 05:50] LABS: Ammonia 27 umol/L (9-30)
[2021-03-16 08:00] VITALS: BP 149/56; PULSE 68; RESP 22; TEMP 36.9; O2SAT 100
[2021-03-16 12:00] VITALS: BP 139/67; PULSE 69; RESP 22; TEMP 37.2; O2SAT 100
--- NOTE | 2021-03-16 12:13 | PM.DS ---
DS: Admitting Diagnosis Admitting Diagnosis (1) Fall from ground level: Code(s): W18.30XA - Fall on same level, unspecified, initial encounter Status: Acute (2) Closed head injury: Code(s): S09.90XA - Unspecified injury of head, initial encounter Status: Acute (3) Traumatic hematoma of scalp: Code(s): S00.03XA - Contusion of scalp, initial encounter Status: Acute (4) Hyperammonemia: Code(s): E72.20 - Disorder of urea cycle metabolism, unspecified Status: Acute (5) Cirrhosis: Code(s): K74.60 - Unspecified cirrhosis of liver Status: Acute (6) Thrombocytopenia: Code(s): D69.6 - Thrombocytopenia, unspecified Status: Acute (7) Pulmonary hypertension: Code(s): I27.20 - Pulmonary hypertension, unspecified Status: Acute DS: Discharge Diagnosis Discharge Diagnosis (1) Thrombocytopenia: Code(s): D69.6 - Thrombocytopenia, unspecified Status: Acute (2) Closed head injury: Code(s): S09.90XA - Unspecified injury of head, initial encounter Status: Acute (3) Fall from ground level: Code(s): W18.30XA - Fall on same level, unspecified, initial encounter Status: Acute (4) CHI (closed head injury): Code(s): S09.90XA - Unspecified injury of head, initial encounter Status: Acute (5) Traumatic hematoma of scalp: Code(s): S00.03XA - Contusion of scalp, initial encounter Status: Acute (6) Acute hepatic encephalopathy: Code(s): K72.00 - Acute and subacute hepatic failure without coma Status: Acute (7) Hyperammonemia: Code(s): E72.20 - Disorder of urea cycle metabolism, unspecified Status: Acute (8) Pulmonary hypertension: Code(s): I27.20 - Pulmonary hypertension, unspecified Status: Acute (9) Cirrhosis: Code(s): K74.60 - Unspecified cirrhosis of liver Status: Acute (10) Hepatitis C: Code(s): B19.20 - Unspecified viral hepatitis C without hepatic coma Status: Acute DS: Summary Hospital Course Reason for hospitalization: fall Hospital Course: 76-year-old female with known history of hepatitis C and cirrhosis presented to the emergency room after a ground level fall striking her head resulting in traumatic hematoma of her scalp. She was subsequently found to have hyperammonemia and diagnosed with hepatic encephalopathy. Patient was treated with lactulose with improvement of her mental status. She was subsequently discharged home in stable condition with indications to follow up with her primary care physician and ongoing outpatient care with GI. 03/13/21 The patient presented today after she fell backwards and hit her head on her dresser at home. She has a fairly large scalp hematoma on the left posterior occipital region. I was told that she was also confused, possibly related to elevated ammonia levels. She was given a lactulose enema in the emergency department she seems very alert at the time my evaluation. ABG showed hypercarbia with a pCO2 of 54.2 however her pH is compensated she seems in no respiratory distress. Continue lactulose. Hemoglobin and hematocrit are stable on review of previous labs. She has chronic thrombocytopenia which is also stable. Initiate fall precautions. PT/OT consulted. 03/14/21 The patient doing okay complains of right jaw pain however she is able to eat and speak. Mentation is improving continues on lactulose case reviewed with RN. 03/15/2021 Ammonia now below 30 patient appears to be oriented to self and place. She is noted to have audible wheezing today with bilateral crackles Lasix ordered as well as breathing treatment. Overall patient is doing well she is cleared to move out of IMU to [facility]. Anticipate discharge home with home health care in 24-48 hours 03/16/2021 Discharge home with home health care in stable condition to care of her daughter with indications to follow up with PCP and GI
[2021-03-16 13:29] LABS: Basophils Percent Auto 0.5 % (0.2-1.2); Eosinophils Absolute Auto 0.9 K/mm3 (0-0.3); Eosinophils Percent Auto 14.4 % (0-4.4); Hematocrit 32.9 % (37.0-47.0); Hemoglobin 10.8 g/dL (12.0-15.0); Immature Granulocyte Absolute 0.02 K/mm3 (0.00-0.031); Immature Granulocyte Percent A 0.3 % (0-0.5); Lymphocytes Percent Auto 15.2 % (18.3-44.2); Mean Corpuscular HGB Conc 32.8 g/dl (32-36); Mean Corpuscular Hemoglobin 35.1 pg (26-34); Mean Corpuscular Volume 106.8 fl (80-100); Monocytes Absolute Auto 0.5 K/mm3 (0.1-0.6); Monocytes Percent Auto 7.8 % (2.6-8.5); Neutrophils Absolute Auto 3.7 K/mm3 (1.3-6.7); Neutrophils Percent Auto 61.8 % (45.5-73.1); Platelet Count Result 77 k/mm3 (150-375); Red Blood Count 3.08 M/mm3 (4.2-5.4); White Blood Count 5.9 K/mm3 (4.5-10.0)
[2021-03-16 14:21] LABS: Alanine Aminotransferase 20 U/L (4-35); Albumin Level 2.5 g/dL (3.5-5.1); Alkaline Phosphatase 180 U/L (38-126); Anion Gap 2 mmol/L (8-16); Aspartate Amino Transferase 42 U/L (14-36); Bilirubin,Total 3.6 mg/dL (0.2-1.3); Blood Urea Nitrogen 17 mg/dL (7-17); Calcium 8.3 mg/dL (8.4-10.2); Carbon Dioxide 27 mmol/L (22-30); Chloride 109 mmol/L (98-107); Estimated Glomerular Filt Rate > 60; Glucose 126 mg/dL (65-110); Potassium 4.4 mmol/L (3.4-5.0); Sodium 138 mmol/L (137-145)
[2021-03-16 14:37] VITALS: O2SAT 94
[2021-03-16 16:00] VITALS: BP 144/52; PULSE 64; RESP 22; TEMP 36.2; O2SAT 96
== END 2021-03-16 20:05 | disposition home or self-care (01) | DRG 442 ==
LOC: ANHED 08:58 → ANHIMU 10:16
PROVIDERS: General Practice; Physician Assistant; Admitting Provider Internal Medicine; Emergency Provider Emergency Medicine; PCP Nurse Practitioner Family; Visit Provider Hospitalist
DX: K72.00 Acute and subacute hepatic failure without coma (principal); E72.20 Disorder of urea cycle metabolism, unspecified; S09.90XA Unspecified injury of head, initial encounter; S00.03XA Contusion of scalp, initial encounter; W18.30XA Fall on same level, unspecified, initial encounter; D69.6 Thrombocytopenia, unspecified; K74.60 Unspecified cirrhosis of liver; B19.20 Unspecified viral hepatitis C without hepatic coma; D64.9 Anemia, unspecified; I10 Essential (primary) hypertension; I27.20 Pulmonary hypertension, unspecified; Z79.899 Other long term (current) drug therapy; Z86.73 Personal history of transient ischemic attack (TIA), and cerebral infarction without residual deficits; Z95.0 Presence of cardiac pacemaker; Z98.49 Cataract extraction status, unspecified eye; Z96.1 Presence of intraocular lens
CPT/HCPCS: 36415; 36600; 51701; 70450; 71045; 72125; 80053; 81001; 82140; 82375; 82805; 83050; 83735; 83880; 84484; 85025; 85027; 85055; 85610; 85730; 93005; 93970; 93971; 94002; 94003; 94640; 96361; 96374; 97161; 99285; A9270; G0378; J1940; J2405; J7030

== ENCOUNTER 2021-04-04 11:23 | Inpatient (IN) | payer MEDICARE, MEDICAID, SELFPAY ==
[2021-04-04] VITALS (36 sets, daily range): BP systolic 99–129; BP diastolic 35–81; PULSE 62–82; RESP 11–28; TEMP 36.4–37.1; O2SAT 90–99; BMI 27.4; BMI 22.7
--- NOTE | ~2021-04-04 | XR_ITS ---
EXAMINATION: XR chest 1V EXAM DATE: 04/04/2021 12:57 INDICATION: Altered mental status since this AM. wheezing. TECHNIQUE: Portable AP frontal chest x-ray was obtained. Comparison is made to prior examination from 03/13/2021. FINDINGS: There is a dual lead pacemaker/AICD seen with leads projecting over the expected locations of the right atrial appendage and right ventricle. There is cardiomegaly. No confluent consolidation, pneumothorax or pleural effusion suspected. The bones are osteopenic. There are bony degenerative c hanges. IMPRESSION: Cardiomegaly. Reviewed, dictated and finalized at location B. IMPRESSION: Cardiomegaly.
--- NOTE | ~2021-04-04 | CT_ITS ---
EXAMINATION: CT brain wo con INDICATION: Confusion, a Abel COMPARISON: 03/13/2021, 01/03/2021 TECHNIQUE: Standard unenhanced head CT. The dose-length product (DLP) was 681.00 mGy-cm. The mA was a djusted according to patient size. Iterative reconstruction technique was employed. FINDINGS: There is no acute intraparenchymal hemorrhage. No evidence of mass lesion. No evidence of a cute infarction. There is mild periventricular and subcortical hypodensity probably related to small vessel ischemic disease. There is mild prominence of the sulci and ventricles related to cerebral atr ophy. Intracranial calcified cerebral atherosclerosis is noted. There are no extra-axial collections. There is no mass effect or midline shift. Changes in the globes are likely from ocular lens surgery. The visualized sinuses and mastoid air cells are well aerated. A chronic calvarial defect with assoc iated soft tissue is seen in the right frontal bone. Differential is as previously described. IMPRESSION: 1. No acute intracranial abnormality. 2. Age related findings. Reviewed, dictated and finalized at location A.
--- NOTE | 2021-04-04 11:57 | PC.NURSE ---
Patient was able to stand and get into bed with assistance. Patient restless in bed, moaning. Per daughter, patient is hard of hearing and has not been answering questions.
--- NOTE | 2021-04-04 12:12 | ECG_ITS ---
Measurements Intervals [place] Rate: 68 P: 119 WY: 201 QRS: 38 QRSD: 85 T: 13 QT: 406 QTc: 432 Interpretive Statements ELECTRONIC ATRIAL PACEMAKER NONSPECIFIC T-WAVE ABNORMALITY- ANT/INF LEADS BASELINE WANDER- V1 BORDERLINE ECG Electronically Signed On 04-04-2021 13:04:26 CDT by Francisco Javier Simmons D.O.
--- NOTE | 2021-04-04 12:22 | ED.AMS ---
HPI - Altered Mental Status General Chief Complaint: Altered Mental Status Stated Complaint: Confused/Missed Dr appointment Time Seen by Provider: 04/04/21 11:49 Source: family Mode of arrival: wheelchair Limitations: language barrier and other (hard of hearing, daughter is poor historian as well) History of Present Illness HPI narrative: This is an female with history of liver disease who presents with her daughter for altered mental status. Patient does not speak Faroese and she is hard of hearing. Her daughter speaks Faroese but she is poor historian. Patient is laying in bed moaning. Daughter states patient has been altered since 3 am this morning. She is unsure of what happened. She states patient does take lactulose daily. She reports patient fell onto her buttocks yesterday trying to sit in a chair. She otherwise is unsure why her mother is moaning. Related Data Home Medications Medication Instructions Recorded Confirmed furosemide 20 mg PO BID 08/28/20 04/04/21 magnesium oxide 400 mg PO DAILY 08/28/20 04/04/21 pantoprazole 40 mg PO DAILY 08/28/20 04/04/21 tadalafil (pulm. hypertension) 20 mg PO BID 08/28/20 04/04/21 gabapentin 300 mg PO TID 01/03/21 04/04/21 oxycodone 5 mg PO QID PRN 01/03/21 04/04/21 potassium chloride 10 meq PO DAILY 01/03/21 04/04/21 albuterol sulfate [Ventolin HFA] 2 puff INHALATION Q4H PRN 03/13/21 04/04/21 Allergies Allergy/AdvReac Type Severity Reaction Status Date / Time codeine AdvReac Confusion Verified 03/13/21 07:15 Review of Systems Review of Systems: ROS unobtainable: Yes unobtainable due to medical condition [facility] Past Medical History Medical History Arthritis Asthma Burst fracture of lumbar vertebra Chronic, noted on imaging dating back to 08/23/2020. Burst fracture of thoracic vertebra Chronic, noted on imaging dating back to 08/23/2020. Cardiomegaly Cirrhosis Hepatitis C Hypertension Pacemaker Pulmonary hypertension Thrombocytopenia Transient ischemic attack Vitamin D deficiency Surgical History Surgical History History of cardiac pacemaker in situ History of cataract extraction with lens replacement History of orthopedic surgery ORIF of right wrist fracture. Family History Family History (Updated 04/04/21 @ 19:44 by Libia Torres NP) Sibling Hypertension Other Unknown family medical history Social History Social History (Updated 04/04/21 @ 19:44 by Libia Torres NP) Social History: Ms. Mckenzie lives with one of her daughters (eunice) in [place]. 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 Lifelong nonsmoker. No alcohol or illicit substance use. Her daughters, Anshul Cedeno and Eunice Cedeno, are her surrogate decision makers. Code status: Full code. Smoking status: Never smoker Alcohol intake: current Substance use: never Spiritual care concerns: No Exam Const: General: alert Limitations: language barrier HENMT: Head: normocephalic and atraumatic Face and sinus: face symmetric Throat: posterior oropharynx normal Eyes: EOM: EOMs intact bilaterally Resp: Effort & Inspection: normal respiratory effort and no retractions Auscultation: clear to auscultation bilaterally Cardio: Rate: regular rate Rhythm: regular rhythm Heart sounds: no murmurs GI: GI Palp: Yes Soft to palpation, No Tenderness to palpation present (GI) and No Guarding due to palpation present (GI) Auscultation: normal bowel sounds Neuro: General: moves all extremities and CN's II-XI intact bilaterally Extrem: General: edema bilateral (all extremities, anasarca) Course Consultations Consultation #1: I discussed case with Libia Torres. PAtient has hyperammonemia, UTI. Date: 04/04/21 Time: 15:45 Vital Signs Vital signs: Vital Signs Temperature 98.7 F 04/04/21 11:28 Pulse Rate 73 04/04/21 11:28 Respiratory Rate 16 04/04/21 11:28 Bl
[2021-04-04 12:33] LABS: Glucose Point of Care 131 mg/dl (65-105)
[2021-04-04 12:38] LABS: Fractional Inspired Oxygen 21 %; HCO3 ABG 31.6 mEq/l (22.0-26.0); Oxygen Content ABG 12.2 %vol (16.0-22.0); Oxygen Saturation ABG 92.1 % (95.0-100.0); PCO2 ABG 45.6 mmHg (35.0-45.0); PO2 ABG 60.1 mmHg (80.0-100.0); PO2 FiO2 Ratio Arterial Blood 2.86 %; Total Hemoglobin 9.7 g/dL (12.0-18.0); pH ABG 7.459 (7.350-7.450)
--- NOTE | 2021-04-04 12:42 | PC.NURSE ---
Patient to radiology.
[2021-04-04 12:50] LABS: Device ROOM AIR; Modified Allen's Test Pass; Site Drawn LEFT RADIAL
--- NOTE | 2021-04-04 12:57 | PC.NURSE ---
Patient back from radiology. Unable to obtain IV access on patient. ORTIZ Hernandez in room with ultrasound for IV placement.
[2021-04-04 13:36] LABS: Basophils Percent Auto 0.4 % (0.2-1.2); Eosinophils Percent Auto 21.9 % (0-4.4); Hemoglobin 9.3 g/dL (12.0-15.0); Immature Granulocyte Absolute 0.01 K/mm3 (0.00-0.031); Immature Granulocyte Percent A 0.2 % (0-0.5); Lymphocytes Absolute Auto 0.67 K/mm3 (0.9-3.2); Lymphocytes Percent Auto 14.7 % (18.3-44.2); Mean Corpuscular HGB Conc 32.1 g/dl (32-36); Mean Corpuscular Hemoglobin 34.7 pg (26-34); Mean Corpuscular Volume 108.2 fl (80-100); Mean Platelet Volume 10.2 fl (7.4-10.4); Monocytes Absolute Auto 0.4 K/mm3 (0.1-0.6); Neutrophils Absolute Auto 2.5 K/mm3 (1.3-6.7); Neutrophils Percent Auto 53.8 % (45.5-73.1); Platelet Count Result 80 k/mm3 (150-375); Red Blood Count 2.68 M/mm3 (4.2-5.4); Red Cell Distribution Width 14.4 % (11.5-14.5); White Blood Count 4.6 K/mm3 (4.5-10.0)
[2021-04-04 13:47] LABS: Ammonia 86 umol/L (9-30)
[2021-04-04 13:54] LABS: INR 1.6; Prothrombin Time 18.3 Seconds (11.1-14.7)
[2021-04-04 13:55] LABS: Partial Thromboplastin Time 41.3 SECONDS (22.3-36.8)
[2021-04-04 14:01] LABS: Add Urine Microscopic? YES; Appearance Urine Cloudy (Clear); Bacteria Urine Trace /hpf; Bilirubin Urine Negative (Negative); Blood Urine 2+ (Negative); Color Urine Yellow (Yellow); Glucose Urine UA Negative (Negative); Ketones Urine Negative (Negative); Leukocyte Esterase Ur 3+ LEU/UL (Negative); Nitrate Urine Positive (Negative); Protein Urine Negative (Negative); RBC Urine 0-2 /hpf (0-2); Specific Grav Ur 1.006 (1.001-1.035); Squamous Epithelial Cell Urine Few /hpf (Few); Urobilinogen Urine Negative mg/dL (<2.0); WBC Urine >75 /hpf
[2021-04-04 14:17] LABS: NT Pro B Type Natriuretic Pept 315 pg/mL (5-100)
[2021-04-04] MEDS: LACTULOSE 20 GM/30 ML UDC PO (14:23)
[2021-04-04 15:27] LABS: Alanine Aminotransferase 17 U/L (4-35); Albumin Level 2.4 g/dL (3.5-5.1); Alkaline Phosphatase 197 U/L (38-126); Anion Gap 1 mmol/L (8-16); Aspartate Amino Transferase 46 U/L (14-36); Bilirubin,Total 3.3 mg/dL (0.2-1.3); Blood Urea Nitrogen 10 mg/dL (7-17); Calcium 7.8 mg/dL (8.4-10.2); Carbon Dioxide 35 mmol/L (22-30); Chloride 101 mmol/L (98-107); Estimated Glomerular Filt Rate > 60; Glucose 133 mg/dL (65-110); Potassium 2.9 mmol/L (3.4-5.0); Sodium 137 mmol/L (137-145)
[2021-04-04] MEDS: POTASSIUM CHLORIDE 20 MEQ TABLET 40 MEQ PO (15:54)
[2021-04-04 16:26] LABS: Magnesium 1.6 mg/dL (1.6-2.3)
--- NOTE | 2021-04-04 18:30 | ADMGEN ---
This patient, Stacie Mckenzie, was admitted to Medical Room 348-. Patient/family oriented to hospital policies and general routines including ID bracelet, bed and alarms, visiting hours, pain management, procedures, bathroom and other care routines, personal items, smoking policy, room service/diet, and visiting hours. Information on how to activate the Rapid Response Team has been discussed. Patient/Family are encouraged to report perceived risks to care and to ask questions if they do not understand what they are told or what they should do.
[2021-04-04 18:38] LABS: Glucose Point of Care 150 mg/dl (65-105)
--- NOTE | 2021-04-04 19:30 | PM.IMHP ---
H&P: HPI History of Present Illness Date/Time: 04/04/21 19:30 this is a 76-year-old female patient who has a past medical history of having liver disease, cirrhosis of the liver and hepatitis-C. The patient's daughter Eunice is at the bedside attempting to answer questions. The patient's last discharged from here was on 03/16/2021 with similar episode. The patient has lactose lows scheduled at home however the daughter Eunice stated that the patient does not always like to take her lactulose because it makes her bottom sore and makes her hemorrhoids pop out. The patient does not speak Spanish in is very hard of hearing. The daughter is also having difficulty answering questions as well. The daughter stated that the patient has had altered mental status since 3:00 a.m. this morning. She has been falling again she fell on her buttocks yesterday trying to sit in a chair the patient was started on Rocephin for UTI diagnosed in the emergency room. Her H&H is 9.3 and 29.0 which is close to her baseline. APTT is 41.3 and PT is 18.3. Her potassium is noted to be 2.9 and was supplemented in the emergency room. Total bilirubin 3.3 AST is 46 alkaline phosphatase 197 and ammonia level 86. Head CT was read as no acute intracranial abnormality. Age-related findings. Chest x-ray was read as cardiomegaly. The patient was admitted to inpatient services on 04/04/2021 Chief Complaint: Confusion Review of Systems Review of Systems: All systems reviewed & are unremarkable except as noted in HPI and below Constitutional: Constitutional: Reports as per HPI and Reports no additional constitutional complaints Eyes: Eyes: Reports as per HPI and Reports no additional eye complaints ENT: Reports system reviewed and no additional complaints, except as documented and Reports Normal hearing present Cardiovascular: Cardiovascular: Reports no additional cardiovascular complaints Respiratory: Respiratory: Reports no additional respiratory complaints and Reports no additional respiratory complaints Gastrointestinal: Gastrointestinal: Reports as per HPI and Reports no additional gastrointestinal complaints Musculoskeletal: Musculoskeletal: Reports no additional musculoskeletal complaints Integumentary/Breasts: Skin/Breast: Reports system reviewed and no additional complaints, except as docu and Reports as per HPI Neurologic: Reports system reviewed and no additional complaints, except as documented, Reports as per HPI and Reports Normal hearing present Psychiatric: Psychiatric: Reports no additional psychiatric complaints and Reports as per HPI Endocrine: Endocrine: Reports no additional endocrine complaints Hematologic/Lymphatic: Hematologic/Lymphatic: Reports no additional hematologic/lymphatic complaints Allergic/Immunologic: Allergic/Immunologic: Reports no additional allergic/immunologic complaints [facility] Past Medical History Medical History Arthritis Asthma Burst fracture of lumbar vertebra Chronic, noted on imaging dating back to 08/23/2020. Burst fracture of thoracic vertebra Chronic, noted on imaging dating back to 08/23/2020. Cardiomegaly Cirrhosis Hepatitis C Hypertension Pacemaker Pulmonary hypertension Thrombocytopenia Transient ischemic attack Vitamin D deficiency Surgical History Surgical History History of cardiac pacemaker in situ History of cataract extraction with lens replacement History of orthopedic surgery ORIF of right wrist fracture. Family History Family History (Updated 04/04/21 @ 19:44 by Libia Torres NP) Sibling Hypertension Other Unknown family medical history Social History Social History (Updated 04/04/21 @ 19:44 by Libia Torres NP) Social History: Ms. Mckenzie lives with one of her daughters (eunice) in [place]. 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 Lifelong nonsmoker. No alcohol or illicit substan
[2021-04-04 23:32] LABS: Anion Gap 2 mmol/L (8-16); Blood Urea Nitrogen 10 mg/dL (7-17); Calcium 7.8 mg/dL (8.4-10.2); Carbon Dioxide 29 mmol/L (22-30); Chloride 106 mmol/L (98-107); Estimated Glomerular Filt Rate > 60; Glucose 172 mg/dL (65-110); Potassium 3.4 mmol/L (3.4-5.0); Sodium 137 mmol/L (137-145)
[2021-04-05] VITALS (10 sets, daily range): BP systolic 116–125; BP diastolic 45–49; PULSE 76–86; RESP 17–24; TEMP 36.1–37.3; O2SAT 94–96
[2021-04-05 06:09] LABS: Basophils Percent Auto 0.3 % (0.2-1.2); Eosinophils Absolute Auto 1.2 K/mm3 (0-0.3); Eosinophils Percent Auto 19.2 % (0-4.4); Hematocrit 27.3 % (37.0-47.0); Hemoglobin 8.7 g/dL (12.0-15.0); Immature Granulocyte Absolute 0.02 K/mm3 (0.00-0.031); Immature Granulocyte Percent A 0.3 % (0-0.5); Lymphocytes Percent Auto 12.8 % (18.3-44.2); Mean Corpuscular HGB Conc 31.9 g/dl (32-36); Mean Corpuscular Hemoglobin 35.1 pg (26-34); Mean Corpuscular Volume 110.1 fl (80-100); Mean Platelet Volume 9.6 fl (7.4-10.4); Monocytes Absolute Auto 0.7 K/mm3 (0.1-0.6); Monocytes Percent Auto 10.6 % (2.6-8.5); Neutrophils Absolute Auto 3.6 K/mm3 (1.3-6.7); Neutrophils Percent Auto 56.8 % (45.5-73.1); Platelet Count Result 88 k/mm3 (150-375); Red Blood Count 2.48 M/mm3 (4.2-5.4); Red Cell Distribution Width 14.4 % (11.5-14.5); White Blood Count 6.3 K/mm3 (4.5-10.0)
[2021-04-05 06:23] LABS: Ammonia 56 umol/L (9-30)
[2021-04-05 06:27] LABS: Lactic Acid Reflex 1.2 mmol/L (0.7-2.1)
[2021-04-05 06:51] LABS: Alanine Aminotransferase 14 U/L (4-35); Alkaline Phosphatase 179 U/L (38-126); Anion Gap 0 mmol/L (8-16); Aspartate Amino Transferase 35 U/L (14-36); Bilirubin,Total 2.1 mg/dL (0.2-1.3); Blood Urea Nitrogen 11 mg/dL (7-17); Calcium 7.9 mg/dL (8.4-10.2); Carbon Dioxide 32 mmol/L (22-30); Chloride 105 mmol/L (98-107); Estimated Glomerular Filt Rate > 60; Glucose 152 mg/dL (65-110); Lactate Dehydrogenase 727 U/L (313-618); Magnesium 1.7 mg/dL (1.6-2.3); Potassium 3.3 mmol/L (3.4-5.0); Sodium 137 mmol/L (137-145)
[2021-04-05 07:53] LABS: Glucose Point of Care 145 mg/dl (65-105)
[2021-04-05] MEDS: MAGNESIUM OXIDE 400 MG TABLET PO (09:45)
[2021-04-05] MEDS: FUROSEMIDE 20 MG TABLET PO ×2 (09:45→18:43)
[2021-04-05] MEDS: GABAPENTIN 300 MG CAPSULE PO ×3 (09:45→18:43)
[2021-04-05] MEDS: LACTULOSE 20 GM/30 ML UDC PO ×3 (09:45→18:43)
[2021-04-05] MEDS: PANTOPRAZOLE 40 MG TABLET PO (09:46)
[2021-04-05] MEDS: POTASSIUM CHLORIDE 10 MEQ TABLET.ER PO (09:46)
[2021-04-05 12:40] LABS: Glucose Point of Care 183 mg/dl (65-105)
[2021-04-05] MEDS: ALBUTEROL SULFATE (*SP) AEROSOL 1 PUFF 2 PUFF INHALATION (14:39)
--- NOTE | 2021-04-05 15:13 | PM.IMPN ---
Progress Note: A&P Assessment and Plan (1) Acute hepatic encephalopathy: Code(s): K72.00 - Acute and subacute hepatic failure without coma Status: Acute Assessment and Plan: The patient had been admitted for this last month for the same thing. Continue with patient's Lasix gabapentin and lactulose. The daughter stated that the patient does not always take her lactulose because she is tired of having diarrhea. And that it causes her hemorrhoids to pop out. Also the patient was found to have UTI. 04/05 patient is a elderly frail with history of liver cirrhosis possibly secondary to hepatitis C patient was brought with a acute mental status change upon arrival patient ammonia level was 86 patient had been refusing to take her lactulose, this morning patient ammonia level is 56 however patient is quite somnolent unable to provide any review of symptoms and no family member present, patient confusion stemming from elevated ammonia level due to not taking lactulose, discussed with nursing staff to encourage patient to take lactulose, will continue to monitor once clinically stable will have a PT OT evaluate the patient. (2) Thrombocytopenia: Code(s): D69.6 - Thrombocytopenia, unspecified Status: Acute Assessment and Plan: Most likely due to the liver disease. Patient appears to be at her baseline. (3) Hyperammonemia: Code(s): E72.20 - Disorder of urea cycle metabolism, unspecified Status: Acute Assessment and Plan: Most likely causing her confusion. Continue with the lactulose and check her ammonia level in the a.m.. (4) Anemia: Code(s): D64.9 - Anemia, unspecified Status: Acute Assessment and Plan: Continue to monitor. The patient appears to be at her baseline. (5) Pancytopenia: Code(s): D61.818 - Other pancytopenia Status: Acute Assessment and Plan: Most likely related to her liver disease. (6) Hypokalemia: Code(s): E87.6 - Hypokalemia Status: Acute Assessment and Plan: Her potassium was replaced in the emergency room. A recheck tonight and again in the morning and replace as necessary. The patient had been on a potassium supplement at home as well. (7) Hepatitis C: Code(s): B19.20 - Unspecified viral hepatitis C without hepatic coma Status: Acute Assessment and Plan: It was not real clear if the patient had been treated for hepatitis C. The daughter was not sure. (8) Cirrhosis: Code(s): K74.60 - Unspecified cirrhosis of liver Status: Acute Assessment and Plan: According to the records the patient sees a GI specialist outpatient. (9) UTI (urinary tract infection): Code(s): N39.0 - Urinary tract infection, site not specified Status: Acute Assessment and Plan: Continue with Rocephin and treat according to cultures. Subjective Date/time seen: 04/05/21 15:13 this is a 76-year-old female patient who has a past medical history of having liver disease, cirrhosis of the liver and hepatitis-C. The patient's daughter Tere is at the bedside attempting to answer questions. The patient's last discharged from here was on 03/16/2021 with similar episode. The patient has lactose lows scheduled at home however the daughter Tere stated that the patient does not always like to take her lactulose because it makes her bottom sore and makes her hemorrhoids pop out. The patient does not speak Irish in is very hard of hearing. The daughter is also having difficulty answering questions as well. The daughter stated that the patient has had altered mental status since 3:00 a.m. this morning. She has been falling again she fell on her buttocks yesterday trying to sit in a chair the patient was started on Rocephin for UTI diagnosed in the emergency room. Her H&H is 9.3 and 29.0 which is close to her baseline. APTT is 41.3 and PT is 18.3. Her potassium is noted to be 2.9 and was sharpe
--- NOTE | 2021-04-05 19:24 | PHAR ---
NGREDIENTS: TADALAFIL -- 20 MG RELATED DOCUMENTS: DRUGDEX EVALUATIONS - TADALAFIL COLOR: YELLOW SHAPE: OVAL IMPRINT: N9 FORM: ORAL TABLET
[2021-04-06] VITALS (10 sets, daily range): BP systolic 125–139; BP diastolic 44–64; PULSE 73–84; RESP 14–20; TEMP 36.8–37; O2SAT 94–97
[2021-04-06 05:50] LABS: Hematocrit 27.8 % (37.0-47.0); Hemoglobin 9.1 g/dL (12.0-15.0); Mean Corpuscular HGB Conc 32.7 g/dl (32-36); Mean Corpuscular Hemoglobin 35.1 pg (26-34); Mean Corpuscular Volume 107.3 fl (80-100); Mean Platelet Volume 9.2 fl (7.4-10.4); Platelet Count Result 86 k/mm3 (150-375); Red Blood Count 2.59 M/mm3 (4.2-5.4); Red Cell Distribution Width 14.9 % (11.5-14.5); White Blood Count 6.2 K/mm3 (4.5-10.0)
[2021-04-06 06:00] LABS: Ammonia 33 umol/L (9-30)
[2021-04-06 06:01] LABS: Alanine Aminotransferase 15 U/L (4-35); Alkaline Phosphatase 187 U/L (38-126); Anion Gap 0 mmol/L (8-16); Aspartate Amino Transferase 36 U/L (14-36); Bilirubin,Total 2.6 mg/dL (0.2-1.3); Blood Urea Nitrogen 12 mg/dL (7-17); Calcium 8.1 mg/dL (8.4-10.2); Carbon Dioxide 34 mmol/L (22-30); Chloride 107 mmol/L (98-107); Estimated Glomerular Filt Rate > 60; Glucose 163 mg/dL (65-110); Magnesium 1.8 mg/dL (1.6-2.3); Sodium 141 mmol/L (137-145)
[2021-04-06] MEDS: MAGNESIUM OXIDE 400 MG TABLET PO (10:31)
[2021-04-06] MEDS: FUROSEMIDE 20 MG TABLET PO ×2 (10:31→17:11)
[2021-04-06] MEDS: LACTULOSE 20 GM/30 ML UDC PO ×3 (10:31→17:11)
[2021-04-06] MEDS: POTASSIUM CHLORIDE 10 MEQ TABLET.ER PO (10:31)
[2021-04-06] MEDS: PANTOPRAZOLE 40 MG TABLET PO (10:31)
[2021-04-06] MEDS: GABAPENTIN 300 MG CAPSULE PO ×3 (10:31→17:11)
--- NOTE | 2021-04-06 16:15 | PM.DS ---
DS: Admitting Diagnosis Admitting Diagnosis Chief Complaint: Confusion DS: Discharge Diagnosis Discharge Diagnosis (1) Acute hepatic encephalopathy: Code(s): K72.00 - Acute and subacute hepatic failure without coma Status: Acute Assessment and Plan: The patient had been admitted for this last month for the same thing. Continue with patient's Lasix gabapentin and lactulose. The daughter stated that the patient does not always take her lactulose because she is tired of having diarrhea. And that it causes her hemorrhoids to pop out. Also the patient was found to have UTI. 04/05 patient is a elderly frail with history of liver cirrhosis possibly secondary to hepatitis C patient was brought with a acute mental status change upon arrival patient ammonia level was 86 patient had been refusing to take her lactulose, this morning patient ammonia level is 56 however patient is quite somnolent unable to provide any review of symptoms and no family member present, patient confusion stemming from elevated ammonia level due to not taking lactulose, discussed with nursing staff to encourage patient to take lactulose, will continue to monitor once clinically stable will have a PT OT evaluate the patient. (2) Thrombocytopenia: Code(s): D69.6 - Thrombocytopenia, unspecified Status: Acute Assessment and Plan: Most likely due to the liver disease. Patient appears to be at her baseline. (3) Hyperammonemia: Code(s): E72.20 - Disorder of urea cycle metabolism, unspecified Status: Acute Assessment and Plan: Most likely causing her confusion. Continue with the lactulose and check her ammonia level in the a.m.. (4) Anemia: Code(s): D64.9 - Anemia, unspecified Status: Acute Assessment and Plan: Continue to monitor. The patient appears to be at her baseline. (5) Pancytopenia: Code(s): D61.818 - Other pancytopenia Status: Acute Assessment and Plan: Most likely related to her liver disease. (6) Hypokalemia: Code(s): E87.6 - Hypokalemia Status: Acute Assessment and Plan: Her potassium was replaced in the emergency room. A recheck tonight and again in the morning and replace as necessary. The patient had been on a potassium supplement at home as well. (7) Hepatitis C: Code(s): B19.20 - Unspecified viral hepatitis C without hepatic coma Status: Acute Assessment and Plan: It was not real clear if the patient had been treated for hepatitis C. The daughter was not sure. (8) Cirrhosis: Code(s): K74.60 - Unspecified cirrhosis of liver Status: Acute Assessment and Plan: According to the records the patient sees a GI specialist outpatient. (9) UTI (urinary tract infection): Code(s): N39.0 - Urinary tract infection, site not specified Status: Acute Assessment and Plan: Continue with Rocephin and treat according to cultures. DS: Summary Hospital Course Reason for hospitalization: this is a 76-year-old female patient who has a past medical history of having liver disease, cirrhosis of the liver and hepatitis-C. The patient's daughter Tere is at the bedside attempting to answer questions. The patient's last discharged from here was on 03/16/2021 with similar episode. The patient has lactose lows scheduled at home however the daughter Tere stated that the patient does not always like to take her lactulose because it makes her bottom sore and makes her hemorrhoids pop out. The patient does not speak Czech in is very hard of hearing. The daughter is also having difficulty answering questions as well. The daughter stated that the patient has had altered mental status since 3:00 a.m. this morning. She has been falling again she fell on her buttocks yesterday trying to sit in a chair the patient was started on Rocephin for UTI diagnosed in the emergency room. Her H&H is 9.3 and 29.0 which is close
[2021-04-06] MEDS: POTASSIUM CHLORIDE 20 MEQ TABLET 40 MEQ PO (17:11)
[2021-04-06] MEDS: SPIRONOLACTONE 12.5 MG TABLET PO (17:11)
--- NOTE | 2021-04-06 21:44 | PC.NURSE ---
[facility] here for transport patient to home. All personal belonging and discharge paperwork in transport with patient. WILTON Carranza, notified of patient pickup.
--- NOTE | 2021-04-06 22:53 | PC.NURSE ---
Home meds found in drawer. WILTON Carranza, notified at [phone]. States will be here to retrieve medications on 04/07/21.
== END 2021-04-06 21:40 | disposition home or self-care (01) | DRG 689 ==
LOC: ANHED 11:49 → ANH3MED 16:34
PROVIDERS: Nurse Practitioner; Admitting Provider Family Medicine; Emergency Provider General Practice; PCP Nurse Practitioner Family; Visit Provider Family Medicine
DX: N39.0 Urinary tract infection, site not specified (principal); K72.00 Acute and subacute hepatic failure without coma; D61.818 Other pancytopenia; E72.20 Disorder of urea cycle metabolism, unspecified; E87.6 Hypokalemia; B19.20 Unspecified viral hepatitis C without hepatic coma; K74.60 Unspecified cirrhosis of liver; Z86.73 Personal history of transient ischemic attack (TIA), and cerebral infarction without residual deficits; Z91.81 History of falling; Z95.0 Presence of cardiac pacemaker; Z98.42 Cataract extraction status, left eye; Z98.41 Cataract extraction status, right eye; Z96.1 Presence of intraocular lens
CPT/HCPCS: 36415; 36600; 70450; 71045; 80048; 80053; 81001; 82140; 82805; 82948; 83605; 83615; 83735; 83880; 84443; 85025; 85027; 85610; 85730; 87040; 87077; 87086; 87088; 87186; 93005; 94640; 96365; 99285; A9270; J0696